=== PATIENT | female | born 1945 | race Caucasian/White ===

== ENCOUNTER 2018-11-01 13:52 | Emergency (ER) | payer MEDICARE, SELFPAY ==
[2018-11-01 14:01] VITALS: BP 200/81; PULSE 67; RESP 18; TEMP 36.4; O2SAT 99
--- NOTE | 2018-11-01 14:03 | DI.RAD.S_ITS ---
PROCEDURE: XR ELBOW LT MIN 3V INDICATIONS: glf, lt elbow pain/swelling TECHNIQUE: 3 views of the elbow were acquired. COMPARISON: None. FINDINGS: Bones: Mildly displaced proximal ulnar/olecranon fracture, best seen on the lateral view Overlying soft tissue swelling. IMPRESSION: Proximal ulnar/olecranon fracture Dictated by: Pawan Anthony M.D. on 11/01/2018 at 14:26 Approved by: Pawan Anthony M.D. on 11/01/2018 at 14:27
--- NOTE | 2018-11-01 14:49 | ED.UPPEXIN ---
HPI - Extremity Injury (Upper) General Chief Complaint: Extremity Injury, Upper Stated Complaint: LT ARM/ELBOW FELL Time Seen by Provider: 11/01/18 14:16 Source: patient Mode of arrival: ambulatory Limitations: no limitations History of Present Illness HPI narrative: This is a 73-year-old female comes to the emergency department with complaint of left elbow pain. Patient states she was getting in her car. She went to step on the snow because she felt it would be more stable than all the ice and there was ice underneath that she slipped fell onto her back and left elbow. Patient states her back is a little sore but no major injuries there. Patient states she has large area of bruising and swelling and it is painful to move the elbow. She denies any numbness denies any tingling. She is able to move her fingers and squeeze without issue. Patient denies any injury, no neck pain, no shortness of breath or chest pain or pressure. She takes metoprolol and aspirin daily. She has a history of eye surgery was also told part of the issues with stroke that she is supposed to go see specialty physician for this. Patient also her tonsils as well as 2 partial mastectomies. Patient defers any pain medication at this time. Related Data Previous Rx's Medication Instructions Recorded metoprolol succinate ER 50 mg 50 mg PO QDAY #90 ter 01/22/18 tablet,extended release 24 hr hydrocodone-acetaminophen [[place]] 1 tab PO Q6H PRN #5 tab 11/01/18 Allergies Allergy/AdvReac Type Severity Reaction Status Date / Time lisinopril [LISINOPRIL] Allergy Unknown GI issues Unverified 12/31/17 12:18 Penicillins [PENICILLINS] Allergy Unknown Unverified 12/31/17 12:18 SULFA Allergy Mild Uncoded 12/31/17 12:18 Review of Systems Review of Systems ROS Unobtainable: All systems reviewed & are unremarkable except as noted in HPI and below Constitutional Denies headache(s) and Denies weakness ENT Ears, Nose, Mouth, and Throat: Denies headache(s) and Denies neck pain Cardiovascular Denies chest pain, Denies syncope (loc) and Denies dyspnea Respiratory Denies cough and Denies dyspnea Musculoskeletal Reports back pain (mild, none in the mild/backbone), Reports deformity, Reports arthralgias, Reports joint swelling, Reports limited range of motion, Denies neck pain, Denies numbness and Denies tingling Integumentary/Breasts Reports unusual bruising and Denies wounds Neurologic Denies syncope (loc), Denies headache(s), Denies numbness, Denies sensory deficit, Denies tingling, Denies paresthesias and Denies weakness [facility] Surgical History History of cataract removal with insertion of prosthetic lens History of tonsillectomy Status post appendectomy Status post breast lumpectomy Status post tubal ligation Family History Mother Age: 92 Heart disease Family History Mother Age: 92 Heart disease Social History substance use type: marijuana Exam Narrative Exam Narrative: GEN: well nourished, well appearing female, alert and oriented x 3, patient appears to be in mild distress. HEENT: Atraumatic, pupils are equal round reactive to light, extraocular movements are intact, nares are clear. HEART: Regular rate and rhythm without murmur, clicks, rubs. Pulses are equal in upper and lower extremities LUNGS:Lungs clear to auscultation, no wheezes, rales, crackles, chest moves symmetrically ABD:bowel sounds normal, soft, non-tender, no guarding, rebound, rigidity, no masses noted, no hepatosplenomegaly BACK: No cervical, thoracic or lumbar vertebral point tenderness. Patient has normal range of motion. Patient's gait is normal. MSCL: Patient has tenderness as well as bruising and swelling over the left elbow. Patient does not any clear deformity but she does have tenderness. Patient does not wish to fully straighten the elbow. 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 She has sensation in both upper extremities. NEURO:CN 2-12 intact, sensation normal Initial Vital Signs Initial Vital Signs: Vital Signs Temperature 97.6 F 11/01/18 14:01 Pulse Rate 67 11/01/18 14:01 Respiratory Rate 18 11/01/18 14:01 Blood Pressure 200/81 H 11/01/18 14:01 Pulse Oximetry 99 11/01/18 14:01 Scores GCS [place] coma scale eye opening: Spontaneous [place] coma scale verbal response: Orientated Eliezer coma scale motor response: Obey commands [place] coma scale total score: 15 Course Orders Ordered: ED Orders 11/01/18 14:03 XR elbow LT min 3V Stat Vital Signs - 8 hr 11/01/18 14:01 Temperature 97.6 F Pulse Rate 67 Respiratory Rate 18 Blood Pressure 200/81 H Pulse Oximetry 99 [facility] - Extremity Injury (Upper) Imaging Data elbow xray: Radiologist's impression: [address] [address] XRay Report Signed Patient: Kami Comer LMR#: [id number] : 4Acct:[id number] Age/Sex: 73 / FDate of Service: 11/01/18 Loc: ED Accession Number: [id number] Procedure: XR elbow LT min 3V Ordering Provider: Sierra Ozuna D.O. PROCEDURE: XR ELBOW LT MIN 3V INDICATIONS: glf, lt elbow pain/swelling TECHNIQUE: 3 views of the elbow were acquired. COMPARISON: None. FINDINGS: Bones: Mildly displaced proximal ulnar/olecranon fracture, best seen on the lateral view Overlying soft tissue swelling. IMPRESSION: Proximal ulnar/olecranon fracture Dictated by: Pawan Anthony M.D. on 11/01/2018 at 14:26 Approved by: Pawan Anthony M.D. on 11/01/2018 at 14:27 [facility] Narrative Medical decision making narrative: Patient's films were reviewed with Dr. Armstrong here in the department. Plan for conservative and non operative management at this time. Patient is to be placed in partial extension with posterior long-arm splint. Plan for follow-up with the office. Patient defers any medication here in the department. Discussed will do a small script for breakthrough pain and she plans to [id number] medications for pain control. Nursing placed splint, on recheck patient is nvi. shoulder immobilizer given. And discussion on s/s to watch for, reasons to return. Discharge Plan Departure Patient Disposition: Home Clinical Impression: Closed olecranon fracture Qualifiers: Encounter type: initial encounter Laterality: left Qualified Code(s): S52.022A - Displaced fracture of olecranon process without intraarticular extension of left ulna, initial encounter for closed fracture Discharge Date/Time: 11/01/18 16:06 Interventions: ED Discharge Assessment Last Done: 11/01/18 16:06 Instructions: DI for Elbow Fracture Activity Restrictions/Additional Instructions: Follow-up with Orthopedic surgery this following week, call tomorrow morning for an appointment. You may take Tylenol up to a 1000 mg every 8 hr as needed for pain. Continue home medications as prescribed. You may take prescribed narcotic pain medication as needed, this medication can make you sleepy so do not drive, perform hazards activities or make any major decisions while taking it. Splint Care: Keep splint clean and dry. Elevated affected body part to decrease swelling. OK to use ice pack on the affected body part. Use for 15-20 minutes each time, for 5-6x per day. If you develop worsening pain, numbness, tingling, discoloration of the affected body part, loosen the splint by loosening the AARON wrap, and either see your doctor for an urgent re-assessment, or return to the Emergency Department. Return to the Emergency Department for any new or worsening symptoms. Prescriptions: New hydrocodone-acetaminophen [[place]] 5-325 mg tablet 1 tab PO Q6H PRN (Reason: pain) Qty: 5 RF: 0 No Action metoprolol succinate 50 mg tablet extended release 24 hr 50 mg PO QDAY Qty: 90 RF: 3 Referrals: Opal Aparicio MD [Physician] -
== END 2018-11-01 16:06 | disposition home or self-care (01) ==
PROVIDERS: Emergency Provider Emergency Medicine
DX: S52.022A Displaced fracture of olecranon process without intraarticular extension of left ulna, initial encounter for closed fracture (principal); W01.0XXA Fall on same level from slipping, tripping and stumbling without subsequent striking against object, initial encounter
CPT/HCPCS: 29105; 73080; 99282; 99283

== ENCOUNTER → 2020-03-28 10:47 | Outpatient (CLI) | payer MEDICARE, SELFPAY ==
[2020-03-28 11:15] LABS: Add Manual Diff / Slide Review NO; Basophils Absolute Auto 100 /uL (0-100); Basophils Percent Auto 1.2 % (0-2); Eosinophils Absolute Auto 400 /uL (0-450); Eosinophils Percent Auto 5.3 % (2-4); Hematocrit 38.9 % (36-46); Hemoglobin 12.6 g/dL (12.0-16.0); Lymphocytes Absolute Auto 3100 /uL (1100-4500); Lymphocytes Percent Auto 36.4 % (25-40); Mean Corpuscular HGB Conc 32.3 % (30-36); Mean Corpuscular Hemoglobin 28.1 PG (26-34); Monocytes Absolute Auto 400 /uL (0-900); Monocytes Percent Auto 5.3 % (3-14); Neutrophils Absolute Auto 4400 /uL (1500-7000); Neutrophils Percent Auto 51.8 % (50-75); Platelet Count 305 X10^3/uL (150-400); Red Blood Cell Count 4.48 X10^6/uL (4.0-5.2); Red Cell Distribution Width 15.3 % (11.6-14.8); White Blood Cell Count 8.4 X10^3/uL (4.5-11.0)
[2020-03-28 11:33] LABS: Alanine Aminotransferase 39 IU/L (<35); Albumin 4.1 g/dL (3.5-5.0); Albumin Globulin Ratio 1.2 (1.0-2.8); Alkaline Phosphatase 180 U/L (38-126); Aspartate Aminotransferase 47 IU/L (14-36); BUN Creatinine Ratio 21.7 (6-22); Bilirubin Total 0.4 mg/dL (0.2-1.3); Blood Urea Nitrogen 18 mg/dL (7-17); Calcium 9.9 mg/dL (8.4-10.2); Carbon Dioxide 32 mmol/L (22-32); Chloride 104 mmol/L (98-107); Estimated Glomerular Filt Rate > 60.0 mL/min (>60); Globulin 3.5 g/dL (1.7-4.1); Glucose 93 mg/dL (80-110); HEMOLYSIS < 15 (0-50); Sodium 140 mmol/L (137-145); Total Protein 7.6 g/dL (6.3-8.2)
[2020-03-28 12:04] LABS: TSH w/ Reflex to FT4 3.45 uIU/mL (0.47-4.68)
== END ==
PROVIDERS: PCP Internal Medicine; Referring Provider Internal Medicine; Visit Provider Internal Medicine
DX: I10 Essential (primary) hypertension (principal); Q23.8 Other congenital malformations of aortic and mitral valves
CPT/HCPCS: 36415; 80053; 84443; 85025

== ENCOUNTER 2022-09-15 19:24 | Emergency (ER) | payer MEDICARE, SELFPAY ==
[2022-09-15 19:28] VITALS: BP 214/103; PULSE 95; RESP 16; TEMP 36.4; O2SAT 96; BMI 20.9
--- NOTE | 2022-09-15 19:40 | DI.CT.S_ITS ---
PROCEDURE: CT CERVICAL SPINE WO CON INDICATIONS: fall, hit head TECHNIQUE: Noncontrast 3 mm thick sections acquired from the skull base to the T4 level. Sagittal and coronal reformats were then constructed. For radiation dose reduction, the following was used: automated exposure control, adjustment of mA and/or kV according to patient size. COMPARISON: None. FINDINGS: Image quality: Excellent. Bones: No fractures or dislocations. Visualized superior ribs are intact. Cervical spondylosis is centered C5-C6 and C6-C7. There is disc height loss and bilateral uncovertebral joint osteophytes at these levels. There is severe bony foraminal narrowing on the right C5-C6. Soft tissues: Prevertebral soft tissues are normal in thickness. No paravertebral hematomas. No apical pneumothoraces. IMPRESSION: 1. No evidence acute cervical fracture or dislocation. 2. Cervical spondylitic change. Findings include severe foraminal narrowing on the right at C5-C6. Dictated by: Sahil Lowe M.D. on 09/15/2022 at 19:57 Approved by: Sahil Lowe M.D. on 09/15/2022 at 19:59
--- NOTE | 2022-09-15 19:40 | DI.CT.S_ITS ---
PROCEDURE: CT HEAD/BRAIN WO CON INDICATIONS: fall, hit head, on coumadin TECHNIQUE: Noncontrast 4.5 mm thick angled axial sections acquired from the foramen magnum to the vertex, with coronal and sagittal reformats. For radiation dose reduction, the following was used: automated exposure control, adjustment of mA and/or kV according to patient size. COMPARISON: None. FINDINGS: Image quality: Excellent. CSF spaces: Basal cisterns are patent. No extra-axial fluid collections. The ventricles are symmetric in size and shape. Brain: No intracranial bleeds or masses. There is cerebral volume loss for age, with resultant ventricular and sulcal prominence. There are periventricular and deep white matter chronic small vessel ischemic changes. There is intracranial internal carotid artery atherosclerosis. Skull and face: Calvarium and visualized facial bones appear intact, without suspicious lesions. Sinuses: Visualized sinuses and mastoids are clear. IMPRESSION: No evidence acute intracranial abnormality Dictated by: Sahil Loew M.D. on 09/15/2022 at 19:59 Approved by: Sahil Lowe M.D. on 09/15/2022 at 20:00
--- NOTE | 2022-09-15 19:41 | ED.FALL ---
HPI - Fall General Chief Complaint: Fall Stated Complaint: fell/head/right arm/leg injury Time Seen by Provider: 09/15/22 19:33 History of Present Illness HPI Narrative: 77-year-old woman with history of chronic atrial fibrillation anticoagulated on warfarin, hypertension stumbled over a step suffering a mechanical fall landing on her knees wrists with the brunt of the impact on the right side than hitting her right shoulder and the right side of her head with a small laceration to the right side of her forehead. She is brought in by her grandson who corroborates the story. She notes that she is been otherwise doing well with no chest pain, palpitations, fevers, cough, abdominal pain, vomiting, dizziness, near syncopal episodes, headaches, weakness or numbness. Related Data Home Medications Medication Instructions Recorded Confirmed aspirin 81 mg tablet,delayed 81 mg PO DAILY 02/16/19 11/06/20 release (Fam Low Dose Aspirin) B-complex with vitamin C 1 tab PO DAILY 07/28/19 11/06/20 ascorbate calcium (vitamin C) 500 500 mg PO DAILY 07/28/19 11/06/20 mg tablet cholecalciferol (vitamin D3) 25 25 mcg PO DAILY 03/28/20 11/06/20 mcg (1,000 unit) capsule Previous Rx's Medication Instructions Recorded felodipine 10 mg tablet,extended 10 mg PO DAILY #90 tabs 11/08/21 release 24 hr metoprolol succinate 100 mg 100 mg PO DAILY #90 tabs 11/08/21 tablet,extended release 24 hr oxycodone-acetaminophen 5 mg-325 1 tab PO Q6H PRN pain #14 tabs 09/15/22 mg tablet polyethylene glycol 3350 17 17 g PO DAILY #238 grams 09/15/22 gram/dose oral powder (Miralax) Allergies Allergy/AdvReac Type Severity Reaction Status Date / Time Penicillins [PENICILLINS] Allergy Intermediate Rash and Verified 11/06/20 10:17 other stuff. I was in high school. Influenza Virus Vaccines AdvReac Intermediate (High Verified 11/06/20 10:17 Dose) A bunch of little bump around the site lisinopril [LISINOPRIL] AdvReac Intermediate GI issues Verified 11/06/20 10:17 Soyfwcs-VAJ-SxD Reductase AdvReac Intermediate Exhaustion Verified 11/06/20 10:17 Inhibitor and flu [Frxctew-Byi-Kgo Reductase like Inhibitor] symptoms Cats Allergy Intermediate Normal Uncoded 11/06/20 10:17 Allergy symptoms. SULFA Allergy Mild Patient Uncoded 11/06/20 10:17 can't remember - I was a kid. Review of Systems Review of Systems Narrative: Remainder of complete review of systems is otherwise unremarkable except for that included in the HPI. Patient History Medical History Abnormality of mitral valve annulus Essential hypertension (06/25/16) History of stroke PFO (patent foramen ovale) Transaminitis White matter disease Surgical History History of cataract removal with insertion of prosthetic lens History of tonsillectomy Status post appendectomy Status post breast lumpectomy Status post tubal ligation Family History Mother Age: 96 Heart disease Social History Smoking Status: Former smoker (Quit in 1986) Tobacco: How many years used: 12 second hand exposure: No alcohol intake: current (a rony when I have [place] food occasionally.) substance use type: marijuana (I smoke it once a week.) Smoking Status: Former smoker (Quit in 1986) Exam Initial Vital Signs Initial Vital Signs: Vital Signs Temperature 97.5 F L 09/15/22 19:28 Pulse Rate 95 H 09/15/22 19:28 Respiratory Rate 16 09/15/22 19:28 Blood Pressure 214/103 H 09/15/22 19:28 Pulse Oximetry 96 09/15/22 19:28 Oxygen Delivery Method 09/15/22 19:28 General: Builder frail but otherwise healthy appearing and in no acute distress. Able to give a complete and coherent history. HEENT: Moist mucous membranes, normal sclera with reactive pupils, 2 cm laceration with minor hematoma to the right side of her forehead with bleeding controlled not particularly tender. No other head trauma. Neck: No specific point tenderness, supple Respiratory: Lungs are clear to auscultation, no wheezing no rales no rhonchi. Full and symmetrical air movement Cardiac: Regular rate and rhythm, 4/6 systolic murmur Abdomen: Soft, nontender, good bowel tones, no flank pain, no bruising or contusions Spine: No tenderness along thoracic or lumbar spine. No tenderness with pelvic ring manipulation. Skin: Warm and dry, minor abrasions to both knees. Neurologic: Grossly neurologically intact with no obvious asymmetries or abnormalities Extremities: Minor abrasions to both knees with normal unhindered range of motion, no hematomas and no bony tenderness, minor tenderness to her wrist with full range of motion and no bony tenderness or hematoma. Tender along the olecranon on the right side, can not fully extend her elbow no neurologic complaints distally. No shoulder pain or tenderness on the right side. The left upper extremity was not affected. Psych: Cooperative, appropriate insight and affect Procedures Laceration Repair Right side of forehead: Time of procedure: 21:26 Site: face Side (If applicable): right Size (cm): 2 Description: linear Depth: simple, single layer Pre-repair: wound explored and deep structures intact Skin layer closed with: dermabond Orthopedic Splinting/Casting Right elbow fracture: Time of procedure: 21:26 Side: right Upper Extremity Injury Location: elbow Upper Extremity Immobilizer: sling/shoulder immobilizer Post splinting neuro exam: intact Post splinting vascular exam: intact Placed by: Nursing Course Orders Ordered: ED Orders 09/15/22 19:40 CT cervical spine wo con Stat CT head/brain wo con Stat 09/15/22 20:15 Complete Blood Count AUTO DIFF Stat Comprehensive Metabolic Panel Stat Prothrombin Time INR Stat 09/15/22 20:29 XR elbow RT min 3V Stat 09/15/22 20:31 XR knee LT 3V Stat Discontinued Medications Oxycodone/Acetaminophen (Oxycodone/Apap 5/325 Prepack) 1 bottle MISC SEEINSTR ONE Stop: 09/15/22 19:40 Last Admin: 09/15/22 20:08 Dose: 1 bottle Documented By: SB Vital Signs Vital signs: Vital Signs - 8 hr 09/15/22 19:28 Temperature 97.5 F L Pulse Rate 95 H Respiratory Rate 16 Blood Pressure 214/103 H Pulse Oximetry 96 Oxygen Delivery Method Room Air MDM - Fall Lab Data Result diagrams: 09/15/22 20:15 09/15/22 20:15 Labs: Lab Results 09/15/22 09/15/22 09/15/22 Range/Units 20:15 20:15 20:15 WBC 8.1 (4.5-11.0) X10^3/uL RBC 4.50 (4.0-5.2) X10^6/uL Hgb 13.7 (12.0-16.0) g/dL Hct 41.1 (36-46) % MCV 91.4 (80-100) fL MCH 30.4 (26-34) PG MCHC 33.2 (30-36) % RDW 14.5 (11.6-14.8) % Plt Count 286 (150-400) X10^3/uL Neut % (Auto) 54.6 (50-75) % Lymph % (Auto) 33.2 (25-40) % Wagoner % (Auto) 6.9 (3-14) % Eos % (Auto) 4.1 H (2-4) % Baso % (Auto) 1.2 (0-2) % Neut # (Auto) 4400 (4048-0481) /uL Lymph # (Auto) 2700 (0925-4492) /uL Wagoner # (Auto) 600 (0-900) /uL Eos # (Auto) 300 (0-450) /uL Baso # (Auto) 100 (0-100) /uL PT 21.7 H (10.1-12.7) SECONDS INR 1.9 H (0.9-1.3) Sodium 142 (137-145) mmol/L Potassium 3.6 (3.4-5.1) mmol/L Chloride 107 (98-107) mmol/L Carbon Dioxide 27 (22-32) mmol/L BUN 30 H (7-17) mg/dL Creatinine 1.15 H (0.52-1.04) mg/dL Estimated GFR 49 L (>60) mL/min BUN/Creatinine Ratio 26.1 H (6-22) Glucose 107 (80-110) mg/dL Calcium 9.0 (8.4-10.2) mg/dL Total Bilirubin 0.3 (0.2-1.3) mg/dL AST 22 (14-36) IU/L ALT 14 (<35) IU/L Alkaline Phosphatase 137 H (38-126) U/L Total Protein 7.9 (6.3-8.2) g/dL Albumin 3.7 (3.5-5.0) g/dL Globulin 4.2 H (1.7-4.1) g/dL Albumin/Globulin Ratio 0.9 L (1.0-2.8) Imaging Data CT scan - head: Radiologist's Impression: FINDINGS:? Image quality:? Excellent.? ? CSF spaces:? Basal cisterns are patent.? No extra-axial fluid collections.? The ventricles are symmetric in size and shape.? ? Brain:? No intracranial bleeds or masses.? There is cerebral volume loss for age, with resultant ventricular and sulcal prominence.? There are periventricular and deep white matter chronic small vessel ischemic changes.? There is intracranial internal carotid artery atherosclerosis.? ? Skull and face:? Calvarium and visualized facial bones appear intact, without suspicious lesions.? ? Sinuses:? Visualized sinuses and mastoids are clear.? ? IMPRESSION:? No evidence acute intracranial abnormality ? ? ? Dictated by: Sahil Lowe M.D. on 09/15/2022 at 19:59 ? ? CT - cervical spine: Radiologist's Impression: FINDINGS:? Image quality:? Excellent.? ? CSF spaces:? Basal cisterns are patent.? No extra-axial fluid collections.? The ventricles are symmetric in size and shape.? ? Brain:? No intracranial bleeds or masses.? There is cerebral volume loss for age, with resultant ventricular and sulcal prominence.? There are periventricular and deep white matter chronic small vessel ischemic changes.? There is intracranial internal carotid artery atherosclerosis.? ? Skull and face:? Calvarium and visualized facial bones appear intact, without suspicious lesions.? ? Sinuses:? Visualized sinuses and mastoids are clear.? ? IMPRESSION:? No evidence acute intracranial abnormality ? ? ? Dictated by: Sahil Lowe M.D. on 09/15/2022 at 19:59 ? ? XT knee: Radiologist's Impression: FINDINGS:? ? Bones:? Nondisplaced lucency through the inferior/mid patella. ? Soft tissues:? Minimal joint effusion.? No suspicious soft tissue calcifications.? ? ? IMPRESSION:? Nondisplaced lucency through the mid patella as above.? While it does not appear as prominent as a fracture lucency, it does appear more pronounced than typically seen as a nutrient groove or osseous vascularity.? Recommend correlation point tenderness and short interval imaging follow-up. ? ? Dictated by: Josefina Ramos M.D. on 09/15/2022 at 20:49 ? ? elbow xray: Radiologist's Impression: FINDINGS:? ? Bones:? Slight offset appearance the proximal radial head. ? Soft tissues:? Effusion evaluation is limited secondary to patient positioning..? No suspicious soft tissue calcifications.? ? ? IMPRESSION:? Offset appearance of the proximal radial head most consistent with fracture. ? ? Dictated by: Josefina Ramos M.D. on 09/15/2022 at 20:51 ? ? MDM Narrative Medical decision making narrative: 77-year-old woman anticoagulated for her chronic atrial fibrillation suffers mechanical fall landing on her knees elbow shoulder and head. Patient and her grandson are interviewed. No evidence of medical reason for fall, orthopedic complications include possibility patellar fractures knee fractures knee effusions, hip fractures, wrist and elbow fractures, acute neck injury intracranial hemorrhage and complications of laceration to the side of her forehead along with bleeding complications because of her anticoagulation. CT scans of the head and neck are unremarkable. X-rays of the elbow suggest a proximal radial head fracture that will be treated with a sling and referral to Orthopedics. Films are independently reviewed by me. There is no ulnar nerve deficit appreciated on exam. Appropriate pain control will be needed. Because of her Coumadin she can not use nonsteroidals will give her brief prescription for Percocet along with instructions on avoiding constipation X-ray of the knee suggests possible patellar fracture however clinical exam does not show that much tenderness. This is reviewed with patient and her grandson and will ask her to review this with the orthopedic surgeon when she follows up with the elbow injury Partial-thickness laceration to the forehead repaired with skin glue and augmented with Steri-Strips. Instructions on wound care and when to expect the glue and Steri-Strips to begin to peel off. No evidence of excessive bleeding or any additional injuries at this time. She will be safe for discharge home Discharge Plan Departure Patient Disposition: Home Clinical Impression: Anticoagulated, Elevated blood pressure reading Forehead laceration Qualifiers: Encounter type: initial encounter Qualified Code(s): S01.81XA - Laceration without foreign body of other part of head, initial encounter Fall Qualifiers: Encounter type: initial encounter Qualified Code(s): W19.XXXA - Unspecified fall, initial encounter Contusion of knee, left Qualifiers: Encounter type: initial encounter Qualified Code(s): S80.02XA - Contusion of left knee, initial encounter Fracture of radial head, right, closed Qualifiers: Encounter type: initial encounter Fracture alignment: nondisplaced Qualified Code(s): S52.124A - Nondisplaced fracture of head of right radius, initial encounter for closed fracture Activity Restrictions/Additional Instructions: Thank you for coming in today. I am sorry that you stumbled on the curb. Fortunately there is no bleeding in your brain and no spine abnormalities. It looks like you do have a small fracture of your right elbow. This may well be treated only with a sling. You have been given a sling in the emergency department but will need orthopedic follow-up. Please contact [facility] at [phone] for definitive treatment of your elbow fracture The x-ray of your left kneecap suggest there may be a subtle fracture. Please discuss this with the orthopedic surgeon when you follow-up regarding your elbow. There is no specific treatment other than pain control for that. Regarding the laceration on your forehead, I used skin glue and Steri-Strips. Both of these should begin to peel off in 5-6 days which will be absolutely appropriate. It is okay to take a shower and simply pat that area dry rather than rubbing at it. Please do not allow the area to soak in water for any extended period of time. Do expect more pain everywhere tomorrow, after a fall such as this pain typically increases for the 1st 48 hours. Being mobile will help. With Coumadin, you do not want to mix nonsteroidals such as ibuprofen. For moderate pain Tylenol is appropriate and for severe pain Percocet can be helpful. Percocet has Tylenol plus oxycodone. It can be constipating. I do recommend a capful of MiraLax every day that you take oxycodone. If you find that you are getting worse or develop any new symptoms, please feel free to return to the emergency department for further evaluation. Prescriptions: New oxycodone-acetaminophen 5-325 mg tablet 1 tab PO Q6H PRN (Reason: pain) Qty: 14 0RF polyethylene glycol 3350 [Miralax] 17 gram/dose powder 17 g PO DAILY Qty: 238 0RF No Action felodipine 10 mg tablet extended release 24 hr 10 mg PO DAILY Qty: 90 0RF Rx Instructions: PT WILL NEED TO BE SEEN BEFORE NEXT RENEWAL 11/08/21 metoprolol succinate 100 mg tablet extended release 24 hr 100 mg PO DAILY Qty: 90 0RF Rx Instructions: PT WILL NEED TO BE SEEN BEFORE NEXT RENEWAL 11/08/21 aspirin [Fam Low Dose Aspirin] 81 mg tablet,delayed release (DR/EC) 81 mg PO DAILY cholecalciferol (vitamin D3) 25 mcg (1,000 unit) capsule 25 mcg PO DAILY B-complex with vitamin C Tablet 1 tab PO DAILY ascorbate calcium (vitamin C) 500 mg tablet 500 mg PO DAILY Referrals: Danielito Leija MD [Primary Care Provider] -
--- NOTE | 2022-09-15 19:45 | PC.NURSE ---
In CT at this time
[2022-09-15] MEDS: OXYCODONE/APAP 5/325 PREPACK 1 BOTTLE MISC (20:08)
--- NOTE | 2022-09-15 20:29 | DI.RAD.S_ITS ---
PROCEDURE: XR ELBOW RT MIN 3V INDICATIONS: fall, unable to fully extend TECHNIQUE: 3 views of the elbow were acquired. COMPARISON: None. FINDINGS: Bones: Slight offset appearance the proximal radial head. Soft tissues: Effusion evaluation is limited secondary to patient positioning.. No suspicious soft tissue calcifications. IMPRESSION: Offset appearance of the proximal radial head most consistent with fracture. Dictated by: Josefina Ramos M.D. on 09/15/2022 at 20:51 Approved by: Josefina Ramos M.D. on 09/15/2022 at 20:52
--- NOTE | 2022-09-15 20:31 | DI.RAD.S_ITS ---
PROCEDURE: XR KNEE LT 3V INDICATIONS: fall TECHNIQUE: 3 views of the knee were acquired. COMPARISON: None. FINDINGS: Bones: Nondisplaced lucency through the inferior/mid patella. Soft tissues: Minimal joint effusion. No suspicious soft tissue calcifications. IMPRESSION: Nondisplaced lucency through the mid patella as above. While it does not appear as prominent as a fracture lucency, it does appear more pronounced than typically seen as a nutrient groove or osseous vascularity. Recommend correlation point tenderness and short interval imaging follow-up. Dictated by: Josefina Ramos M.D. on 09/15/2022 at 20:49 Approved by: Josefina Ramos M.D. on 09/15/2022 at 20:51
--- NOTE | 2022-09-15 20:32 | PC.NURSE ---
Addendum entered by Mary Ann Cadena R.N. 09/15/22 20:33: to XR not CT Original Note: to CT via stretcher
[2022-09-15 20:34] LABS: Add Manual Diff / Slide Review NO; Basophils Absolute Auto 100 /uL (0-100); Basophils Percent Auto 1.2 % (0-2); Eosinophils Absolute Auto 300 /uL (0-450); Eosinophils Percent Auto 4.1 % (2-4); Hematocrit 41.1 % (36-46); Hemoglobin 13.7 g/dL (12.0-16.0); Lymphocytes Absolute Auto 2700 /uL (1100-4500); Lymphocytes Percent Auto 33.2 % (25-40); Mean Corpuscular HGB Conc 33.2 % (30-36); Mean Corpuscular Hemoglobin 30.4 PG (26-34); Mean Corpuscular Volume 91.4 fL (80-100); Monocytes Absolute Auto 600 /uL (0-900); Monocytes Percent Auto 6.9 % (3-14); Neutrophils Absolute Auto 4400 /uL (1500-7000); Neutrophils Percent Auto 54.6 % (50-75); Platelet Count 286 X10^3/uL (150-400); Red Cell Distribution Width 14.5 % (11.6-14.8); White Blood Cell Count 8.1 X10^3/uL (4.5-11.0)
[2022-09-15 20:41] LABS: INR 1.9 (0.9-1.3); Prothrombin Time 21.7 SECONDS (10.1-12.7)
[2022-09-15 20:43] LABS: Alanine Aminotransferase 14 IU/L (<35); Albumin 3.7 g/dL (3.5-5.0); Albumin Globulin Ratio 0.9 (1.0-2.8); Alkaline Phosphatase 137 U/L (38-126); Aspartate Aminotransferase 22 IU/L (14-36); BUN Creatinine Ratio 26.1 (6-22); Bilirubin Total 0.3 mg/dL (0.2-1.3); Blood Urea Nitrogen 30 mg/dL (7-17); Carbon Dioxide 27 mmol/L (22-32); Chloride 107 mmol/L (98-107); Estimated Glomerular Filt Rate 49 mL/min (>60); Globulin 4.2 g/dL (1.7-4.1); Glucose 107 mg/dL (80-110); HEMOLYSIS < 15 (0-50); Potassium 3.6 mmol/L (3.4-5.1); Sodium 142 mmol/L (137-145); Total Protein 7.9 g/dL (6.3-8.2)
--- NOTE | 2022-09-15 21:15 | PC.NURSE ---
Sling applied to the right arm - instructions given for use - understanding verbalized - tolerated well
== END 2022-09-15 21:51 | disposition home or self-care (01) ==
PROVIDERS: Emergency Provider Emergency Medicine; PCP Internal Medicine
DX: S01.81XA Laceration without foreign body of other part of head, initial encounter (principal); S80.02XA Contusion of left knee, initial encounter; S52.124A Nondisplaced fracture of head of right radius, initial encounter for closed fracture; I10 Essential (primary) hypertension; W18.30XA Fall on same level, unspecified, initial encounter; I48.91 Unspecified atrial fibrillation; Z79.01 Long term (current) use of anticoagulants; Z79.899 Other long term (current) drug therapy
CPT/HCPCS: 36415; 70450; 72125; 73080; 73562; 80053; 85025; 85610; 99283; 99284

== ENCOUNTER 2024-09-22 18:35 | Inpatient (IN) | payer MEDICARE, SELFPAY ==
[2024-09-22] VITALS (12 sets, daily range): BP systolic 147–190; BP diastolic 62–92; PULSE 87–112; RESP 16–22; TEMP 36.6–37.1; O2SAT 94–98; BMI 27.7; BMI 26.2
--- NOTE | 2024-09-22 18:46 | DI.CT.S_ITS ---
PROCEDURE: CT CERVICAL SPINE WO CON INDICATIONS: fall, hit head, dementia TECHNIQUE: Noncontrast 3 mm thick sections acquired from the skull base to the T4 level. Sagittal and coronal reformats were then constructed. For radiation dose reduction, the following was used: automated exposure control, adjustment of mA and/or kV according to patient size. COMPARISON: [facility], CT, CT CERVICAL SPINE WO CON, 09/15/2022, 19:47. FINDINGS: Image quality: Diagnostic Bones: No fractures or dislocations. Visualized superior ribs are intact. Soft tissues: Prevertebral soft tissues are normal in thickness. No paravertebral hematomas. No apical pneumothoraces. IMPRESSION: No displaced fracture or traumatic subluxation. Approved by: Ashlie Camarillo M.D.,Ph.D. on 09/22/2024 at 20:23
--- NOTE | 2024-09-22 18:46 | DI.RAD.S_ITS ---
PROCEDURE: XR HIP W PEL IF DONE LT 2V INDICATIONS: fall, hit head, dementia TECHNIQUE: 2 views of the hip were acquired. COMPARISON: None. FINDINGS: Bones: Acute, displaced intertrochanteric fracture of the left proximal femur. No suspicious bony lesions. The visualized pelvic ring appears intact. Soft tissues: No suspicious soft tissue calcifications or masses. IMPRESSION: Acute, displaced intertrochanteric proximal left femur fracture. Dictated by: Clyde Calderon M.D. on 09/22/2024 at 19:09 Approved by: Clyde Calderon M.D. on 09/22/2024 at 19:10
--- NOTE | 2024-09-22 18:46 | DI.CT.S_ITS ---
PROCEDURE: CT HEAD/BRAIN WO CON INDICATIONS: fall, hit head, dementia TECHNIQUE: Noncontrast 4.5 mm thick angled axial sections acquired from the foramen magnum to the vertex, with coronal and sagittal reformats. For radiation dose reduction, the following was used: automated exposure control, adjustment of mA and/or kV according to patient size. COMPARISON: [facility], CT, CT HEAD WITHOUT CONTRAST, 11/12/2023, 20:17. [facility], CT, CT HEAD/BRAIN WO CON, 09/15/2022, 19:47. FINDINGS: Image quality: Diagnostic. CSF spaces: Basal cisterns are patent. No extra-axial fluid collections. The ventricles are symmetric in size and shape. Brain: No intracranial bleeds or masses. There is moderate cerebral volume loss for age, with resultant ventricular and sulcal prominence. There are moderate periventricular and deep white matter chronic small vessel ischemic changes. Redemonstration of previously described encephalomalacia of the right frontal lobe with extension toward the parietal lobe. Findings are compatible with remote infarction. Additionally, there is also a new area of moderate encephalomalacia involving the posteromedial aspect of the left occipital lobe compatible with remote infarction. There is intracranial internal carotid artery atherosclerosis. Skull and face: Calvarium and visualized facial bones appear intact, without suspicious lesions. Sinuses: Visualized sinuses and mastoids are clear. IMPRESSION: No acute intracranial abnormality seen. New chronic appearing encephalomalacia involving the posterior, medial aspect of the left occipital lobe compatible with remote infarction. This was not visualized on most recent head CT dated November 12, 2023. Stable appearance of encephalomalacia of the right frontal lobe compatible with remote infarction. Age related senescent changes and sequela of chronic small vessel ischemic disease. If there is persistent or high clinical suspicion for acute cerebrovascular ischemia/stroke, more sensitive evaluation with brain MRI can be considered. Dictated by: Clyde Calderon M.D. on 09/22/2024 at 19:59 Approved by: Clyde Calderon M.D. on 09/22/2024 at 20:04
--- NOTE | 2024-09-22 18:48 | ED.FALL ---
HPI - Fall General Chief Complaint: Fall Stated Complaint: GLF / LEFT hip pain Time Seen by Provider: 09/22/24 18:41 Source: patient, EMS, RN notes reviewed and old records reviewed Mode of arrival: EMS Limitations: no limitations History of Present Illness HPI Narrative: 79-year-old female history of atrial fibrillation, hypertension on aspirin patient was dining area her dementia unit. She had a fall she states she fell backwards did hit her head on the side table. She has pain she states more in her right but actually has pain when she moves her left hip shortened and rotated with movement. EMS states fall was witnessed. Patient recalls falling and hitting her head. She denies any headache or neck pain, no chest pain or shortness of breath. No nausea or vomiting. No GI or urinary symptoms. She does have pain with movement of her extremity. She denies any numbness or tingling. Patient states she does take medicine for her heart. She states she takes an aspirin. Mother antinausea documents reported by EMS or patient. Patient states allergic to penicillin and sulfa. No tobacco, alcohol or recreational drugs. Related Data Home Medications Medication Instructions Recorded Confirmed aspirin 81 mg tablet,delayed 81 mg PO DAILY 02/16/19 11/06/20 release (Fam Low Dose Aspirin) B-complex with vitamin C 1 tab PO DAILY 07/28/19 11/06/20 ascorbate calcium (vitamin C) 500 500 mg PO DAILY 07/28/19 11/06/20 mg tablet cholecalciferol (vitamin D3) 25 25 mcg PO DAILY 03/28/20 11/06/20 mcg (1,000 unit) capsule Previous Rx's Medication Instructions Recorded felodipine 10 mg tablet,extended 10 mg PO DAILY #90 tabs 11/08/21 release 24 hr metoprolol succinate 100 mg 100 mg PO DAILY #90 tabs 11/08/21 tablet,extended release 24 hr oxycodone-acetaminophen 5 mg-325 1 tab PO Q6H PRN pain #14 tabs 09/15/22 mg tablet polyethylene glycol 3350 17 17 g PO DAILY #238 grams 09/15/22 gram/dose oral powder (Miralax) Allergies Allergy/AdvReac Type Severity Reaction Status Date / Time Penicillins [PENICILLINS] Allergy Intermediate Rash and Verified 09/22/24 18:57 other stuff. I was in high school. Influenza Virus Vaccines AdvReac Intermediate (High Verified 09/22/24 18:57 Dose) A bunch of little bump around the site lisinopril [LISINOPRIL] AdvReac Intermediate GI issues Verified 09/22/24 18:57 Luwfwrs-NAH-SeT Reductase AdvReac Intermediate Exhaustion Verified 09/22/24 18:57 Inhibitor and flu [Glkwwcd-Pgg-Rek Reductase like Inhibitor] symptoms Cats Allergy Intermediate Normal Uncoded 09/22/24 18:57 Allergy symptoms. SULFA Allergy Mild Patient Uncoded 09/22/24 18:57 can't remember - I was a kid. Review of Systems Review of Systems ROS Unobtainable: All systems reviewed & are unremarkable except as noted in HPI and below Patient History Medical History Transaminitis PFO (patent foramen ovale) Abnormality of mitral valve annulus White matter disease History of stroke Essential hypertension (06/25/16) Surgical History Status post breast lumpectomy History of cataract removal with insertion of prosthetic lens Status post tubal ligation History of tonsillectomy Status post appendectomy Family History Mother Age: 98 Heart disease Social History household members: other Smoking Status: Former smoker Tobacco: How many years used: 12 second hand exposure: No alcohol intake: current substance use type: marijuana (I smoke it once a week.) Smoking Status: Former smoker (Quit in 1986) Exam Narrative Exam Narrative: GEN: Patient appears in moderate distress. HEAD: Patient some bruising in the left cheek and temporal no raccoon/Whyte sign. NECK: Nontender, painless range of motion, trachea midline Negative Nexus criteria, no midline line tenderness, distracting injury, altered mental status, neuro deficit, recent EtOH. EYES: PERRLA, EOMI ENT: External inspection normal, trachea is midline, TM's are normal no hemotypanum, Nares are clear, no septal hematoma, no dental or oral injury, airway is normal and with normal occlusion, No bony tenderness RESP: Chest is nontender and has symmetric movement, no ecchymosis, breath sounds are normal no crackles, wheezes or rales CVS: Heart sounds are normal, no murmur noted, No JVD. ABG/GI: Nontender, soft, normal bowel sounds, no distention, no organomegaly, pelvic rock is negative NEURO: Oriented AOx3, neuro is grossly intact, sensation and motor is normal all 4 extremities moving, cranial nerves II through XII are intact, GCS is 15 PSYCH: Normal mood and affect SKIN: Intact, warm and dry, no crepitus and without decubitus BACK: No CVA tenderness, no vertebral tenderness, no step-off's, no crepitus EXT: Patient is shortened externally rotated has pain at the left hip. No pain of the knee calf or foot in the left. Patient has 2+ pulse. Nontender on the right leg and able to lift and move with the right leg without any pain. No tenderness with full range of motion bilateral upper extremities. Initial Vital Signs Initial Vital Signs: Vital Signs Pulse Rate 103 H 09/22/24 18:38 Pulse Oximetry 98 09/22/24 18:38 Course Orders Ordered: ED Orders 09/22/24 18:46 CT cervical spine wo con Stat CT head/brain wo con Stat XR hip w pel if done LT 2V Stat 09/22/24 18:53 CBC Auto Diff [Complete Blood Count AUTO DIFF] Stat CMP [Comprehensive Metabolic Panel] Stat 09/22/24 20:05 Type and Screen Stat 09/22/24 20:32 EKG-12 Lead Stat Discontinued Medications Metoprolol Succinate (Metoprolol Er 50 Mg Tablet) 50 mg PO NOW ONE Stop: 09/22/24 20:38 Last Admin: 09/22/24 20:52 Dose: 50 mg Documented By: ES Morphine Sulfate (Morphine 4 Mg/Ml Inj) 4 mg IV NOW ONE Stop: 09/22/24 18:47 Last Admin: 09/22/24 19:03 Dose: 4 mg Documented By: SB Morphine Sulfate (Morphine 4 Mg/Ml Inj) 4 mg IV NOW ONE Stop: 09/22/24 20:29 Last Admin: 09/22/24 20:36 Dose: 4 mg Documented By: ES Vital Signs Vital signs: Vital Signs - 8 hr 09/22/24 18:38 09/22/24 18:42 09/22/24 18:44 Temperature Pulse Rate 103 H Respiratory Rate Blood Pressure 190/85 H Pulse Oximetry 98 98 Oxygen Delivery Method 09/22/24 18:49 09/22/24 19:00 09/22/24 19:30 Temperature 98.8 F Pulse Rate 102 H 87 92 H Respiratory Rate 20 20 Blood Pressure 190/85 H Pulse Oximetry 98 97 96 Oxygen Delivery Method Room Air 09/22/24 20:00 09/22/24 20:30 09/22/24 20:35 Temperature Pulse Rate 98 H 95 H 106 H Respiratory Rate 22 20 19 Blood Pressure Pulse Oximetry 95 94 95 Oxygen Delivery Method Room Air 09/22/24 20:35 Temperature Pulse Rate Respiratory Rate Blood Pressure 159/92 H Pulse Oximetry Oxygen Delivery Method MDM - Fall Lab Data 09/22/24 18:53 09/22/24 18:53 Labs: Lab Results 09/22/24 09/22/24 Range/Units 18:53 20:05 WBC 13.6 H (4.5-11.0) X10^3/uL RBC 4.62 (4.0-5.2) X10^6/uL Hgb 13.7 (12.0-16.0) g/dL Hct 41.6 (36-46) % MCV 90.0 (80-100) fL MCH 29.7 (26-34) PG MCHC 32.9 (30-36) % RDW 14.7 (11.6-14.8) % Plt Count 373 (150-400) X10^3/uL Neut % (Auto) 68.6 (50-75) % Lymph % (Auto) 21.4 L (25-40) % [place] % (Auto) 6.8 (3-14) % Eos % (Auto) 2.4 (2-4) % Baso % (Auto) 0.8 (0-2) % Neut # (Auto) 9300 H (7951-9196) /uL Lymph # (Auto) 2900 (3370-6690) /uL [place] # (Auto) 900 (0-900) /uL Eos # (Auto) 300 (0-450) /uL Baso # (Auto) 100 (0-100) /uL Sodium 135 L (137-145) mmol/L Potassium 4.5 (3.4-5.1) mmol/L Chloride 107 (98-107) mmol/L Carbon Dioxide 20 L (22-32) mmol/L BUN 31 H (7-17) mg/dL Creatinine 1.53 H (0.52-1.04) mg/dL Estimated GFR 34 L (>60) mL/min BUN/Creatinine Ratio 20.3 (6-22) Glucose 160 H (80-110) mg/dL Calcium 9.7 (8.4-10.2) mg/dL Total Bilirubin 0.5 (0.2-1.3) mg/dL AST 28 (14-36) IU/L ALT 20 (<35) IU/L Alkaline Phosphatase 99 (38-126) U/L Total Protein 8.6 H (6.3-8.2) g/dL Albumin 3.9 (3.5-5.0) g/dL Globulin 4.7 H (1.7-4.1) g/dL Albumin/Globulin Ratio 0.8 L (1.0-2.8) Blood Type O Positive Antibody Screen Negative Imaging Data Extremity x-ray #1: Radiologist's Impression: Allergy/Adv: Penicillins, Influenza Virus Vaccines, lisinopril, Qvixxag-OUL-OsJ Reductase Inhibitor, [Cats], [SULFA] (More??) Close Hip X-Ray (Signed) Clyde Calderon - 09/22/24 Knee X-Ray (Signed) Josefina Ramos - 09/15/22 Elbow X-Ray (Signed) Josefina Ramos - 09/15/[address] (Signed) Sahil Lowe - 09/15/[address] (Signed) Sahil Lowe - 09/15/22 Elbow X-Ray (Signed) Pawan Anthony - 11/01/18 [place] [id number] XRay Report Signed Patient: Kami Comer MR#: [id number] : 1945 Acct:[id number] Age/Sex: 79 / F Date of Service: 09/22/24 Loc: ED Accession Number: [id number] Procedure: XR hip w pel if done LT 2V Ordering Provider: Sierra Ozuna D.O. PROCEDURE: XR HIP W PEL IF DONE LT 2V INDICATIONS: fall, hit head, dementia TECHNIQUE: 2 views of the hip were acquired. COMPARISON: None. FINDINGS: Bones: Acute, displaced intertrochanteric fracture of the left proximal femur. No suspicious bony lesions. The visualized pelvic ring appears intact. Soft tissues: No suspicious soft tissue calcifications or masses. IMPRESSION: Acute, displaced intertrochanteric proximal left femur fracture. Dictated by: Clyde Calderon M.D. on 09/22/2024 at 19:09 Approved by: Clyde Calderon M.D. on 09/22/2024 at 19:10 ECG Data Attestation: I personally reviewed and interpreted this ECG as follows: Interpretation: AFib rate of 96 QRS 84 QTC 442, no acute ST elevation depression noted. Nonspecific change. MDM Narrative Medical decision making narrative: 79-year-old female anticoagulated on aspirin had witnessed ground fall did hit her head main complaint left hip pain. Left hip x-ray, patient prelim review has obvious hip fracture. Labs white count of 13 hemoglobin of 13 platelets of 373. Sodium 135 CO2 of 20 BUN 31 creatinine 1.53 patient was elevated proximally 3 years ago at 1.15 glucose is 160. Head CT shows no acute change, but does show new chronic appearing encephalomalacia in the posterior medial aspect left occipital lobe compatible with CT cervical spine shows no acute change. Remote infarct not seen on last CT from November 12, 2023 stable encephalomalacia right frontal lobe compatible with remote infarct no acute bleed. Patient received morphine. Did have some improvement in pain. [address] Banks, imaging reviewed she defers CT imaging for the hip. [address] Cortes, accepts for Dr. Leija. Reviewed findings from today orthopedic plan for repair. He request EKG patient does have history of atrial fibrillation is on aspirin but not anticoagulated on Coumadin. EKG shows atrial fibrillation patient's heart rate has been in the 90s. She does normally take metoprolol in the evening according to her med reconciliation from her facility so gave a dose of metoprolol here in the department. Discharge Plan Departure Patient Disposition: Home Clinical Impression: Closed hip fracture, Fall, Abrasion of face
[2024-09-22] MEDS: MORPHINE 4 MG/ML INJ IV ×2 (19:03→20:36)
[2024-09-22 19:06] LABS: Add Manual Diff / Slide Review NO; Basophils Absolute Auto 100 /uL (0-100); Basophils Percent Auto 0.8 % (0-2); Eosinophils Absolute Auto 300 /uL (0-450); Eosinophils Percent Auto 2.4 % (2-4); Hematocrit 41.6 % (36-46); Hemoglobin 13.7 g/dL (12.0-16.0); Lymphocytes Absolute Auto 2900 /uL (1100-4500); Lymphocytes Percent Auto 21.4 % (25-40); Mean Corpuscular HGB Conc 32.9 % (30-36); Mean Corpuscular Hemoglobin 29.7 PG (26-34); Monocytes Absolute Auto 900 /uL (0-900); Monocytes Percent Auto 6.8 % (3-14); Neutrophils Absolute Auto 9300 /uL (1500-7000); Neutrophils Percent Auto 68.6 % (50-75); Platelet Count 373 X10^3/uL (150-400); Red Blood Cell Count 4.62 X10^6/uL (4.0-5.2); Red Cell Distribution Width 14.7 % (11.6-14.8); White Blood Cell Count 13.6 X10^3/uL (4.5-11.0)
[2024-09-22 19:12] LABS: Alanine Aminotransferase 20 IU/L (<35); Albumin 3.9 g/dL (3.5-5.0); Albumin Globulin Ratio 0.8 (1.0-2.8); Alkaline Phosphatase 99 U/L (38-126); Aspartate Aminotransferase 28 IU/L (14-36); BUN Creatinine Ratio 20.3 (6-22); Bilirubin Total 0.5 mg/dL (0.2-1.3); Blood Urea Nitrogen 31 mg/dL (7-17); Calcium 9.7 mg/dL (8.4-10.2); Carbon Dioxide 20 mmol/L (22-32); Chloride 107 mmol/L (98-107); Estimated Glomerular Filt Rate 34 mL/min (>60); Globulin 4.7 g/dL (1.7-4.1); Glucose 160 mg/dL (80-110); HEMOLYSIS 30 (0-50); Potassium 4.5 mmol/L (3.4-5.1); Sodium 135 mmol/L (137-145); Total Protein 8.6 g/dL (6.3-8.2)
--- NOTE | 2024-09-22 20:40 | EKG_ITS ---
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
[2024-09-22] MEDS: METOPROLOL ER 50 MG TABLET PO (20:52)
--- NOTE | 2024-09-22 22:16 | PC.NURSE ---
PATIENT ADMIT TO 206, PATIENT SLID OVER TO BED USING SLIDE BOARD. LEFT HIP FX, SCDS PLACED, PUREWICK CONNECTED TO SUCTION,BRIEF IN PLACE. PATIENT ORIENTED TO ROOM AND CALL LIGHT, ADMIT QUESTIONS ASKED , SOME NOT ANSWERED, SOME WITH CONFUSION. BED ALARM ON. FACILITY MEDICATIONS LIST FOR PATIENT INPUT TO Reissued.PATIENTS IDA RAMÍREZ
--- NOTE | 2024-09-22 22:32 | PC.NURSE ---
2229 Dr. Cortes called via answering service to get an order, awaiting call back.
[2024-09-22] MEDS: SODIUM CHLORIDE 0.9% FLUSH 10 ML IV (23:17)
[2024-09-22] MEDS: SODIUM CHLORIDE 0.9% 1,000 ML 75 ML IV (23:17)
[2024-09-22] MEDS: MORPHINE 2 MG/ML INJ IV (23:29)
[2024-09-23] MEDS: MORPHINE 2 MG/ML INJ IV ×5 (01:25→13:55)
--- NOTE | 2024-09-23 06:00 | CM.MNRNOTE ---
Not able to void when external female cath. was placed. Bladder scanned noted 712 cc in her bladder. Notified Dr. Cortes via answering service @ [phone]. Awaiting call back, will monitor & continue plan of care.
[2024-09-23 06:10] LABS: Add Manual Diff / Slide Review NO; Basophils Absolute Auto 100 /uL (0-100); Eosinophils Absolute Auto 100 /uL (0-450); Eosinophils Percent Auto 0.9 % (2-4); Hematocrit 37.9 % (36-46); Hemoglobin 12.7 g/dL (12.0-16.0); Lymphocytes Absolute Auto 2600 /uL (1100-4500); Lymphocytes Percent Auto 24.4 % (25-40); Mean Corpuscular HGB Conc 33.5 % (30-36); Mean Corpuscular Hemoglobin 30.1 PG (26-34); Mean Corpuscular Volume 89.7 fL (80-100); Monocytes Absolute Auto 900 /uL (0-900); Monocytes Percent Auto 8.6 % (3-14); Neutrophils Absolute Auto 7000 /uL (1500-7000); Neutrophils Percent Auto 65.1 % (50-75); Platelet Count 331 X10^3/uL (150-400); Red Blood Cell Count 4.22 X10^6/uL (4.0-5.2); Red Cell Distribution Width 14.6 % (11.6-14.8); White Blood Cell Count 10.8 X10^3/uL (4.5-11.0)
[2024-09-23 06:30] LABS: BUN Creatinine Ratio 20.6 (6-22); Blood Urea Nitrogen 26 mg/dL (7-17); Calcium 9.6 mg/dL (8.4-10.2); Carbon Dioxide 24 mmol/L (22-32); Chloride 106 mmol/L (98-107); Estimated Glomerular Filt Rate 43 mL/min (>60); Glucose 117 mg/dL (80-110); HEMOLYSIS < 15 (0-50); Potassium 4.5 mmol/L (3.4-5.1); Sodium 137 mmol/L (137-145)
--- NOTE | 2024-09-23 06:40 | PC.NURSE ---
PLaced a butts catheter noted 850 cc of sl. cloudy & strong odor. Urine sample sent to the lab. will report to day RN. to get an order when MD. see her this morning.
--- NOTE | 2024-09-23 06:57 | PC.NURSE ---
Checked patient & asked her if she needed some pain med. She stated I don't need anything @ this minute. Will monitor & report to day RN.
--- NOTE | 2024-09-23 07:47 | PM.HP.1 ---
History of Present Illness History of Present Illness Date Patient Seen: 09/23/24 Time Patient Seen: 08:42 Chief complaint: GLF / LEFT hip pain Narrative: From ED provider: 79-year-old female history of atrial fibrillation, hypertension on aspirin patient was dining area her dementia unit. She had a fall she states she fell backwards did hit her head on the side table. She has pain she states more in her right but actually has pain when she moves her left hip shortened and rotated with movement. EMS states fall was witnessed. Patient recalls falling and hitting her head. She denies any headache or neck pain, no chest pain or shortness of breath. No nausea or vomiting. No GI or urinary symptoms. She does have pain with movement of her extremity. She denies any numbness or tingling. Patient states she does take medicine for her heart. She states she takes an aspirin. Patient states allergic to penicillin and sulfa. No tobacco, alcohol or recreational drugs. S: She was reasonable pain control. She denies any chest pain, or dyspnea. She does have relatively significant cognitive impairment and is not able to provide much in terms of details. [facility] Medical History Transaminitis PFO (patent foramen ovale) Abnormality of mitral valve annulus White matter disease History of stroke Essential hypertension (06/25/16) Surgical History Status post breast lumpectomy History of cataract removal with insertion of prosthetic lens Status post tubal ligation History of tonsillectomy Status post appendectomy Family History Mother Age: 98 Heart disease Social History household members: other Smoking Status: Former smoker Tobacco: How many years used: 12 second hand exposure: No alcohol intake: current substance use type: marijuana (I smoke it once a week.) Meds Home Medications and Allergies Home Medications Medication Instructions Recorded Confirmed Type aspirin 81 mg tablet,delayed 81 mg PO DAILY 02/16/19 09/22/24 History release (Fam Low Dose Aspirin) cholecalciferol (vitamin D3) 25 25 mcg PO DAILY 03/28/20 09/22/24 History mcg (1,000 unit) capsule metoprolol succinate 100 mg 100 mg PO DAILY #90 tabs 11/08/21 09/22/24 Rx tablet,extended release 24 hr amlodipine 10 mg tablet 10 mg PO DAILY 09/22/24 09/22/24 History menthol 10 % topical cream 1 applic topical BID PRN R 09/22/24 09/22/24 History (Biofreeze (menthol)) SHOULDER PAIN sennosides 8.6 mg tablet (senna) 8.6 mg PO BEDTIME PRN Constipation 09/22/24 09/22/24 History Allergies Allergy/AdvReac Type Severity Reaction Status Date / Time Penicillins [PENICILLINS] Allergy Intermediate Rash and Verified 09/22/24 18:57 other stuff. I was in high school. Influenza Virus Vaccines AdvReac Intermediate (High Verified 09/22/24 18:57 Dose) A bunch of little bump around the site lisinopril [LISINOPRIL] AdvReac Intermediate GI issues Verified 09/22/24 18:57 Vnyslsf-HCQ-LsD Reductase AdvReac Intermediate Exhaustion Verified 09/22/24 18:57 Inhibitor and flu [Amaqowe-Sbb-Ups Reductase like Inhibitor] symptoms Cats Allergy Intermediate Normal Uncoded 09/22/24 18:57 Allergy symptoms. SULFA Allergy Mild Patient Uncoded 09/22/24 18:57 can't remember - I was a kid. Review of Systems Review of Systems Narrative: All else reviewed and otherwise unremarkable except as noted in the history and physical.8 Exam Vital Signs (past 8 hours): Oxygen Delivery Method Room Air Narrative Exam Narrative: NAD, alert and oriented to person, fluent speech, calm. Normocephalic skull, EOMI, anicteric sclera, symmetric pupils. Oropharynx unremarkable, no droop. Neck supple, midline trachea, no adenopathy. Lungs clear, normal rate and effort. Heart regular, no murmur gallop or rub. Abdomen is soft, non distended and non tender. Extremities are free of edema. Skin is free of rash or lesions. Joints are not swollen or deformed. Judgment appears to be normal. Objective ECG Impression: Atrial fibrillation Nonspecific ST and T wave abnormality Imaging Multiple studies:: Radiologist's impression: Brain CT: No acute intracranial abnormality seen. New chronic appearing encephalomalacia involving the posterior, medial aspect of the left occipital lobe compatible with remote infarction. This was not visualized on most recent head CT dated November 12, 2023. Stable appearance of encephalomalacia of the right frontal lobe compatible with remote infarction. Age related senescent changes and sequela of chronic small vessel ischemic disease. If there is persistent or high clinical suspicion for acute cerebrovascular ischemia/stroke, more sensitive evaluation with brain MRI can be considered. Cervical spine CT: No displaced fracture or traumatic subluxation. Hip x-ray: Acute, displaced intertrochanteric proximal left femur fracture. Labs 09/23/24 05:47 09/23/24 05:47 Labs: Laboratory Results - last 24 hr 09/22/24 09/22/24 09/23/24 18:53 20:05 05:47 WBC 13.6 H 10.8 RBC 4.62 4.22 Hgb 13.7 12.7 Hct 41.6 37.9 MCV 90.0 89.7 MCH 29.7 30.1 MCHC 32.9 33.5 RDW 14.7 14.6 Plt Count 373 331 Neut % (Auto) 68.6 65.1 Lymph % (Auto) 21.4 L 24.4 L [place] % (Auto) 6.8 8.6 Eos % (Auto) 2.4 0.9 L Baso % (Auto) 0.8 1.0 Neut # (Auto) 9300 H 7000 Lymph # (Auto) 2900 2600 [place] # (Auto) 900 900 Eos # (Auto) 300 100 Baso # (Auto) 100 100 Sodium 135 L 137 Potassium 4.5 4.5 Chloride 107 106 Carbon Dioxide 20 L 24 BUN 31 H 26 H Creatinine 1.53 H 1.26 H Estimated GFR 34 L 43 L BUN/Creatinine Ratio 20.3 20.6 Glucose 160 H 117 H Calcium 9.7 9.6 Total Bilirubin 0.5 AST 28 ALT 20 Alkaline Phosphatase 99 Total Protein 8.6 H Albumin 3.9 Globulin 4.7 H Albumin/Globulin Ratio 0.8 L Blood Type O Positive Antibody Screen Negative Assessment & Plan Assessment & Plan narrative: 1. Right intertrochanteric hip fracture, secondary to ground level fall. Present on admission and active. 2. Pathologic fracture secondary to osteoporosis, present on admission and active. 3. Atrial fibrillation, present on admission and stable. On chronic aspirin. 4. Hypertension, present on admission and stable. 5. Dementia, present on admission and stable. Plan: -orthopedics consultation, anticipate operative repair fracture. -pain medications -IV fluids -monitor heart rate and blood pressure Her POLST appears to indicate DNR, we will make DNR at this point. We will also contact her POA to further clarify level of care decisions. Time-Based Coding :: 35 min spent with patient and on the chart (including review of chart, obtaining history, exam, reviewing outside data, placing orders, documenting exam and treatment plan, and counseling patient) on 09/23 Quality VTE Deep Vein Thrombosis/Pulmonary Embolism Present on Admission: No MIPS - Admit I confirm the patient?s Advance Care Plan is present, Code status is documented, Surrogate decision maker is in patient?s record [If Yes, STOP here]: Yes MIPS - Meds 'Current medications' to include all prescriptions, gnlr-hhz-zxdivxb products, herbals, cannabis/cannabidiol products, and vitamin/mineral/dietary (nutritional) supplements. I have utilized all available resources to obtain, update, or review the patient?s current medications. [If Yes, STOP here]: Yes
[2024-09-23 08:00] VITALS: BP 150/80; PULSE 92; RESP 18; TEMP 36.6; O2SAT 97
[2024-09-23] MEDS: SODIUM CHLORIDE 0.9% FLUSH 10 ML IV ×2 (09:24→22:25)
--- NOTE | 2024-09-23 11:25 | CM.DANOTE ---
Initial DCP Assessment Visit Note Reviewed EMR and team rounds for status updates. Met with pt at bedside to introduce self and role, pt was found to be confused, in pain, and preferred to keep her eyes closed and only briefly interact. Pt lives modified indpendently at [facility], she uses a walker for mobility, requires staff assistance for showering, getting out of bed/getting dressed, and toileting assistance. Pt has advanced dementia, however can answer questions appropriately at times. Called pt's son, Souleymane, to update him on her status. Discussed his preference for her SNF rehab need post d/c from the hospital, he would like us to place a referral with [facility], as she has been there before. Will continue to keep him updated until she d/c's to SNF. Payor: Medicare PCP: Dr. Leija Pt is a 79 year-old F who presented to the ED via EMS after falling backwards at her [facility], hitting her head and fell to the ground, resulting in a L-hip fracture. Ortho was consulted, plan is for L-hip fixation surgery to be done tomorrow, 09/24/24. Faxed referral to [facility] for SNF rehab post d/c from . Plan for now is monitoring of Afib, pain management, NPO after midnight in preparation for surgery. DCP will continue to monitor and assist with transition at d/c. 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 No History Provided By Patient,Medical Record Has Patient been admitted in last 30 No days? Prior Living Arrangements Other Comment [facility] Household Members other Type of transporation used prior to Relies on Others admit Facility Name Admitted From: [facility] Willing to Return to Facility? Yes: [facility] Independent with ADL's No: Modified ind w/walker and staff assistance. Is patient alert and oriented? No: Confusional Needs Assistance With Bathing,Grooming,Meal Prep, Managing Medications,Home Chores / Shopping Caregiver for Another No DME Already Rented / Owned Bath Bench,Elevated Toilet Seat,FWW / Walker Patient/Family Preference Penitentiary Facility Barriers to Discharge No Discharge Plan Penitentiary Facility Referrals Initiated Penitentiary If patient plan is SNF: Has PASSR been Yes completed? Medicare Choice List Provided Yes Medicare choice list reviewed on [employer] electronic tablet with Has Agency SNF been contacted Yes Whiteboard Updated in Patient Room with Yes name and ext. # of Sheet Metal Worker Supervisor Review Status In Process Please Provide Date Initial DC 09/23/24 Assessment Was Performed
[2024-09-23] MEDS: SODIUM CHLORIDE 0.9% 1,000 ML 75 ML IV (12:09)
[2024-09-23 12:39] VITALS: BP 146/86; PULSE 89; RESP 20; TEMP 37.3; O2SAT 95
[2024-09-23] MEDS: HYDROMORPHONE 0.5 MG INJ IV ×4 (14:39→23:28)
[2024-09-23 15:00] LABS: Appearance Urine UA CLEAR; Bilirubin Urine UA NEGATIVE (NEGATIVE); Color Urine UA YELLOW; Glucose Urine UA NEGATIVE (Negative); Ketones Urine UA NEGATIVE (NEGATIVE); Leukocyte Esterase Urine UA 1+ (NEGATIVE); Nitrite Urine UA NEGATIVE (Negative); Occult Blood Urine UA 1+ (Negative); Protein Urine UA TRACE (Negative); Specific Gravity Urine UA 1.015 (1.000-1.035); Urobilinogen Urine UA 0.2 E.U./dL (0.2)
[2024-09-23 15:07] LABS: Bacteria Urine Many (>30); Culture Indicated Urine Specimen Cultured; Mucus Urine 1+ (Negative); RBC Urine 1-5/HPF (0-5/HPF); Squamous Epithelial Cell Urine 5-10 /HPF (0-5/HPF); Urine Volume 10mL (spun); WBC Urine 10-30/HPF (0-5/HPF)
--- NOTE | 2024-09-23 18:13 | P.HP_ITS ---
History of Present Illness History of Present Illness Date Patient Seen: 09/23/24 Time Patient Seen: 10:00 Date of Onset of Symptoms: 09/22/24 Chief complaint: GLF / LEFT hip pain Narrative: This is a 79-year-old female who lives in dementia Care who fell and noted the acute onset of left hip pain. She was living in a retirement situation about a year ago. I talked to her son he said that she had had some progressive decline and a history of a stroke. He notes she does seem to have a visual field defect and he thinks she is weak on the right side. He and the grandkids visit her. [facility] Medical History Transaminitis PFO (patent foramen ovale) Abnormality of mitral valve annulus White matter disease History of stroke Essential hypertension (06/25/16) Surgical History Status post breast lumpectomy History of cataract removal with insertion of prosthetic lens Status post tubal ligation History of tonsillectomy Status post appendectomy Family History Mother Age: 98 Heart disease Social History household members: other Smoking Status: Former smoker Tobacco: How many years used: 12 second hand exposure: No alcohol intake: current substance use type: marijuana (I smoke it once a week.) Meds Home Medications and Allergies Home Medications Medication Instructions Recorded Confirmed Type aspirin 81 mg tablet,delayed 81 mg PO DAILY 02/16/19 09/22/24 History release (Fam Low Dose Aspirin) cholecalciferol (vitamin D3) 25 25 mcg PO DAILY 03/28/20 09/22/24 History mcg (1,000 unit) capsule metoprolol succinate 100 mg 100 mg PO DAILY #90 tabs 11/08/21 09/22/24 Rx tablet,extended release 24 hr amlodipine 10 mg tablet 10 mg PO DAILY 09/22/24 09/22/24 History menthol 10 % topical cream 1 applic topical BID PRN R 09/22/24 09/22/24 History (Biofreeze (menthol)) SHOULDER PAIN sennosides 8.6 mg tablet (senna) 8.6 mg PO BEDTIME PRN Constipation 09/22/24 09/22/24 History Allergies Allergy/AdvReac Type Severity Reaction Status Date / Time Penicillins [PENICILLINS] Allergy Intermediate Rash and Verified 09/22/24 18:57 other stuff. I was in high school. Influenza Virus Vaccines AdvReac Intermediate (High Verified 09/22/24 18:57 Dose) A bunch of little bump around the site lisinopril [LISINOPRIL] AdvReac Intermediate GI issues Verified 09/22/24 18:57 Oxybegq-VGP-ZtX Reductase AdvReac Intermediate Exhaustion Verified 09/22/24 18:57 Inhibitor and flu [Skjvbih-Eyj-Kkp Reductase like Inhibitor] symptoms Cats Allergy Intermediate Normal Uncoded 09/22/24 18:57 Allergy symptoms. SULFA Allergy Mild Patient Uncoded 09/22/24 18:57 can't remember - I was a kid. Review of Systems Review of Systems Narrative: She was reportedly in her near normal state of health until the recent fall. No observed acute weakness, increased confusion or other acute changes, she is currently living at [facility] in a memory care unit. Exam Vital Signs (past 8 hours): - 09/23/24 12:39 Temperature 99.2 F Pulse Rate 89 Respiratory Rate 20 Blood Pressure 146/86 H Pulse Oximetry 95 Oxygen Flow Rate 0 Oxygen Delivery Method Room Air Oxygen Flow Rate 0 Narrative Exam Narrative: She is alert she is conversant she is appropriate she does have some confusion, HEENT is benign, lungs are clear, cor regular rate and rhythm, abdomen is benign, examination of the left lower extremity shows substantial pain with range of motion in the left hip, she can fire her toe flexors and extensors, calf is soft, there was significant shortening of the left leg, she is adequate capillary refill, Objective Labs 09/23/24 05:47 09/23/24 05:47 Labs: Laboratory Results - last 24 hr 09/22/24 09/22/24 09/23/24 18:53 20:05 05:47 WBC 13.6 H 10.8 RBC 4.62 4.22 Hgb 13.7 12.7 Hct 41.6 37.9 MCV 90.0 89.7 MCH 29.7 30.1 MCHC 32.9 33.5 RDW 14.7 14.6 Plt Count 373 331 Neut % (Auto) 68.6 65.1 Lymph % (Auto) 21.4 L 24.4 L [place] % (Auto) 6.8 8.6 Eos % (Auto) 2.4 0.9 L Baso % (Auto) 0.8 1.0 Neut # (Auto) 9300 H 7000 Lymph # (Auto) 2900 2600 [place] # (Auto) 900 900 Eos # (Auto) 300 100 Baso # (Auto) 100 100 Sodium 135 L 137 Potassium 4.5 4.5 Chloride 107 106 Carbon Dioxide 20 L 24 BUN 31 H 26 H Creatinine 1.53 H 1.26 H Estimated GFR 34 L 43 L BUN/Creatinine Ratio 20.3 20.6 Glucose 160 H 117 H Calcium 9.7 9.6 Total Bilirubin 0.5 AST 28 ALT 20 Alkaline Phosphatase 99 Total Protein 8.6 H Albumin 3.9 Globulin 4.7 H Albumin/Globulin Ratio 0.8 L Urine Color Urine Appearance Urine pH Ur Specific [place] Urine Protein Urine Glucose (UA) Urine Ketones Urine Occult Blood Urine Nitrate Urine Bilirubin Urine Urobilinogen Ur Leukocyte Esterase Urine RBC Urine WBC Ur Squamous Epith Cells Urine Bacteria Urine Mucus Ur Culture Indicated? Vol Urine Centrifuged Blood Type O Positive Antibody Screen Negative 09/23/24 14:50 WBC RBC Hgb Hct MCV MCH MCHC RDW Plt Count Neut % (Auto) Lymph % (Auto) [place] % (Auto) Eos % (Auto) Baso % (Auto) Neut # (Auto) Lymph # (Auto) [place] # (Auto) Eos # (Auto) Baso # (Auto) Sodium Potassium Chloride Carbon Dioxide BUN Creatinine Estimated GFR BUN/Creatinine Ratio Glucose Calcium Total Bilirubin AST ALT Alkaline Phosphatase Total Protein Albumin Globulin Albumin/Globulin Ratio Urine Color Yellow Urine Appearance Clear Urine pH 6.0 Ur Specific [place] 1.015 Urine Protein Trace H Urine Glucose (UA) Negative Urine Ketones Negative Urine Occult Blood 1+ H Urine Nitrate Negative Urine Bilirubin Negative Urine Urobilinogen 0.2 Ur Leukocyte Esterase 1+ H Urine RBC 1-5/hpf Urine WBC 10-30/hpf H Ur Squamous Epith Cells 5-10 /hpf H Urine Bacteria Many (>30) H Urine Mucus 1+ H Ur Culture Indicated? Specimen cultured Vol Urine Centrifuged 10ml (spun) Blood Type Antibody Screen X-rays show a comminuted left intertrochanteric fracture with fracture of the lesser trochanter across the intertrochanteric region Assessment & Plan Assessment and plan (1) Closed hip fracture: Status: Acute (2) Closed intertrochanteric fracture of left hip: Status: Acute (3) White matter disease: Problem details: CVA Status: Chronic (4) History of stroke: Status: Chronic Plan She has a comminuted left intertrochanteric hip fracture with separate fracture across her lesser trochanter. I have recommended open reduction internal fixation with an intramedullary tvao. We attempted to get her on the schedule for today but there was not spot in the operating room. I told her she can be stabilized and we will do adequate pain control I would rate her check and make sure she is medically optimized proceed with surgery tomorrow. The procedure options risks benefits and complications were discussed with her son and with the patient who does have some baseline dementia but also consented to surgery. Our goal is to stabilize her leg in order to allow her to be mobilized. Limits of the procedure options risks benefits and complications as well as overall medical status of the patient was discussed with the son in detail. Time-Based Coding :: [TOTAL MINUTES] spent with patient and on the chart (including review of chart, obtaining history, exam, reviewing outside data, placing orders, documenting exam and treatment plan, and counseling patient) on [DATE]. Quality VTE Deep Vein Thrombosis/Pulmonary Embolism Present on Admission: No
--- NOTE | 2024-09-23 19:00 | PC.NURSE ---
Pt alert to self and month, unsure of location. Yelling out in pain frequently, using expletives. Pt refusing repositioning, this RN provided education on purpose of repositioning and importance of skin protection, pressure offloading. Pt agreeable to floating heels and tilting bed for repositioning. Care ongoing.
[2024-09-23 20:00] VITALS: BP 166/101; PULSE 128; RESP 18; TEMP 38.6; O2SAT 90
[2024-09-23 21:33] VITALS: TEMP 38.6
[2024-09-23] MEDS: ACETAMINOPHEN 325 MG TABLET 975 MG PO (21:33)
[2024-09-23] MEDS: cefTRIAXone 1,000 MG in SODIUM CHLORIDE 0.9% 100 ML 200 MG IV (22:24)
[2024-09-23 23:28] VITALS: TEMP 38.5
[2024-09-24] VITALS (15 sets, daily range): BP systolic 97–169; BP diastolic 55–107; PULSE 79–124; RESP 11–18; TEMP 36.2–37.7; O2SAT 91–98; BMI 26.2
--- NOTE | 2024-09-24 | DI.RAD.S_ITS ---
PROCEDURE: XR HIP W PEL IF DONE LT 2V INDICATIONS: ORIF TECHNIQUE: 4 views of the hip were acquired. COMPARISON: [facility], , XR HIP W PEL IF DONE LT 2V, 09/22/2024, 18:51. FINDINGS: 4 C arm images demonstrate performance of ORIF of a intertrochanteric fracture of the left hip. IMPRESSION: Operative fluoroscopic images utilized during performance of ORIF of an intertrochanteric fracture of the left hip. No radiographic evidence of complications. Dictated by: Sahil Lowe M.D. on 09/25/2024 at 11:25 Approved by: Sahil Lowe M.D. on 09/25/2024 at 11:26
[2024-09-24] MEDS: SODIUM CHLORIDE 0.9% 1,000 ML 75 ML IV ×3 (01:32→23:09)
[2024-09-24] MEDS: HYDROMORPHONE 0.5 MG INJ IV ×7 (01:38→14:23)
[2024-09-24] MEDS: SODIUM CHLORIDE 0.9% FLUSH 10 ML IV ×2 (01:39→06:50)
--- NOTE | 2024-09-24 07:29 | PM.PN.1 ---
Subjective Subjective Interval history: Summary: Admitted for hip fracture, UA concerning for UTI. Anticipate operative repair today. S: She denies pain or dyspnea at the time of my visit. She is scheduled for surgery at 4:00 p.m.. Exam Vital Signs (past 8 hours): - 09/24/24 07:29 Temperature 99.8 F H Oxygen Delivery Method Room Air Oxygen Flow Rate 0 Narrative Exam Narrative: NAD, alert and oriented. Fluent speech. Lungs are clear, normal rate and effort. Heart is regular, no murmur gallop or rub. Abdomen is soft, non distended. Extremities are free of edema. Objective Labs 09/23/24 05:47 09/23/24 05:47 Labs: Laboratory Results - last 24 hr 09/23/24 14:50 Urine Color Yellow Urine Appearance Clear Urine pH 6.0 Ur Specific [place] 1.015 Urine Protein Trace H Urine Glucose (UA) Negative Urine Ketones Negative Urine Occult Blood 1+ H Urine Nitrate Negative Urine Bilirubin Negative Urine Urobilinogen 0.2 Ur Leukocyte Esterase 1+ H Urine RBC 1-5/hpf Urine WBC 10-30/hpf H Ur Squamous Epith Cells 5-10 /hpf H Urine Bacteria Many (>30) H Urine Mucus 1+ H Ur Culture Indicated? Specimen cultured Vol Urine Centrifuged 10ml (spun) PFSH Medical History Transaminitis PFO (patent foramen ovale) Abnormality of mitral valve annulus White matter disease History of stroke Essential hypertension (06/25/16) Surgical History Status post breast lumpectomy History of cataract removal with insertion of prosthetic lens Status post tubal ligation History of tonsillectomy Status post appendectomy Family History Mother Age: 98 Heart disease Social History household members: other Smoking Status: Former smoker Tobacco: How many years used: 12 second hand exposure: No alcohol intake: current substance use type: marijuana (I smoke it once a week.) Assessment & Plan Assessment & Plan narrative: 1. Right intertrochanteric hip fracture, secondary to ground level fall. Present on admission and active. 2. Pathologic fracture secondary to osteoporosis, present on admission and active. 3. Atrial fibrillation, present on admission and stable. On chronic aspirin. 4. Hypertension, present on admission and stable. 5. Dementia, present on admission and stable. Plan: -orthopedics consultation, anticipate operative repair of fracture today. -pain medications. -IV fluids -monitor heart rate and blood pressure -Ceftriaxone for UTI. Follow cultures. Her POLST appears to indicate DNR, we will make DNR at this point. We will also contact her POA to further clarify level of care decisions. Time-Based Coding :: [TOTAL MINUTES] spent with patient and on the chart (including review of chart, obtaining history, exam, reviewing outside data, placing orders, documenting exam and treatment plan, and counseling patient) on [DATE]. Quality VTE Deep Vein Thrombosis/Pulmonary Embolism Present on Admission: No
[2024-09-24] MEDS: METOPROLOL ER 50 MG TABLET 100 MG PO (08:46)
[2024-09-24] MEDS: AMLODIPINE 5 MG TABLET 10 MG PO (08:49)
--- NOTE | 2024-09-24 12:17 | CM.DPC ---
DCP Continued: Reviewed EMR and team rounds for pt?s medical status. Per rounds, pt scheduled for hip surgery on Friday, 09/24 at 1600. Per CM assessment, pt son identified preference for anticipated SNF discharge at [facility]. DCP spoke with [facility] Admissions, Xiao, and confirmed that an initial referral was sent earlier, they are awaiting PT/OT evaluations post-surgery. Plan: Anticipating SNF Rehab post surgery, CM Team will continue to follow for coordination of discharge plans. JOJO Masters
--- NOTE | 2024-09-24 17:14 | PM.PREOP ---
Pre-operative Note Interval Note History & Physical reviewed/Exam performed by Physician: Yes Changes to H&P: No
[2024-09-24] MEDS: LACTATED RINGERS 1,000 ML 42 ML IV (17:30)
--- NOTE | 2024-09-24 17:35 | PC.NURSE ---
Patient moaning out loud throughout the morning in pain. SBP and DBP elevated and she is given scheduled antihypertensive medication as well as PRN. ok'd to increase IV 0.5mg hydromorphone to q 1 hr PRN. Patient appears more comfortable, snoring loudly. She is allowed clear liquids this a.m. only interested in juice and then kept NPO for the rest of the day. She is transported to pre-op area approximately 1710 via bed for repair of fractured hip.
--- NOTE | 2024-09-24 19:11 | SUR.HOLD ---
Placed patietn on continous pulse oximeter for monitoring.
--- NOTE | 2024-09-24 20:39 | P.OP_ITS ---
Operative Date/Time/Diagnoses Date of procedure: 09/24/24 Time of procedure: 21:00 Pre-op diagnosis: Left intertrochanteric hip fracture Post-op diagnosis: same Procedure & Clinicians Procedure: Open reduction internal fixation left proximal hip fracture, intertrochanteric hip fracture with cephalomedullary nail CPT code 30255 Same procedure as scheduled: Yes Indications: The patient is a 79-year-old female with a displaced left proximal femur fracture, intertrochanteric fracture. She has dementia at baseline. She was indicated for operative fixation to stabilize her fracture and allow early mobilization decrease the risks of prolonged immobility. Consent was obtained with the patient's POA her son Uzair Via telephone consent. The risks and benefits of the procedure have been discussed with the patient's POA The risks of surgery include but are not limited to infection, malunion, nonunion, persistence of pain, damage to nerves and blood vessels, posttraumatic arthritis, DVT, PE, coardiopulmonary complications and . The patient expressed a thorough understanding of the risks and benefits of surgery and has elected to proceed. Consent was signed Surgeon: Opal Aparicio Click Yes if Unassisted: Yes Anesthesia Type: General and Local Operative Notes Findings: Displaced comminuted proximal femur fracture intertrochanteric fracture left Closure Type: primary Specimen(s): none sent Prosthetic devices, grafts, tissues, transplants, or devices: Banks and Nephew cephalomedullary nail InterTAN short 11.5 x 18 cm 100/95 interlocking lag screw and compression screw 5 x 32.5mm distal locking screw Estimated Blood Loss (mL): 30 Blood products transfused: none Tourniquet time (min): 0 Procedure in detail: Procedure cephalomedullary nail intertrochanteric hip fracture the CPT code 17092 Side: Left Implant Banks [employer] Nephew 11.5 x 18 cm cephalomedullary nail intertan Procedure: The patient was seen and the site of surgery was marked in the preoperative area. This was the left hip. Patient was brought to the operating room and placed on the operative table and general anesthesia was administered. The patient was positioned on the fracture table in standard fashion with a well-padded boots and a padded peroneal post. An SCD was on the contralateral leg. A formal time-out was called to confirm the patient's side and site of surgery administration of preoperative antibiotics. All were in agreement. The operative leg was then gently manipulated under fluoroscopic guidance to obtain a closed reduction in near anatomic alignment. At this point the operative extremity was prepped and draped in the standard sterile manner. The starting point was marked out using fluoroscopic guidance and marked on the skin. A guidewire was placed percutaneously and the starting point was obtained. Incision was made over the guidewire. An opening drill was inserted to the level of the lesser trochanter. The opening Reamer and guidewire were then removed. An 18 cm cephalomedullary nail was selected. The 11.5 x 18 cm nail was then slid into the canal. The nail was advanced to the proper depth and rotation. The guide for the cephalomedullary screw was then inserted into the external handle. An incision was made and the guide was placed down to the bone. A guidewire was placed to the proper depth into the femoral head and this was confirmed on AP and lateral imaging. The tip apex distance was evaluated and appropriate. This was measured. Next the outer cortex was drilled for the interlocking screw and the anti rotation bar was placed. The cephalomedullary screw length was then measured off the drill again. A 100 mm lag screw was selected and the corresponding interlocking compression screw. A guidewire was then over drilled and the lag screw placed. The anti rotation bar was removed and then the locking compression screws were placed and confirmed on biplanar fluoroscopy. The integrated compression screw was tightened. Attention was turned to the distal interlock. This was placed with the guide in the standard technique using the guide jig. AP and lateral images were captured in the or confirming alignment hardware placement. Wounds were irrigated and closed in layers with 0 Vicryl in the deep fascia. 2- 0 in the subcutaneous tissue and nava in the skin. 0.25% Marcaine with epinephrine was injected into the incision sites for local anesthetic. 1 g of TXA was given IV. Sterile dressings were applied. There no immediate complications. Surgical counts were correct. The patient tolerated the procedure well was taken to recovery room . Postoperative plan. Weightbear as tolerated to the surgical extremity. Work with physical therapy and occupational therapy. Discharge by primary team. Likely intermediate. Monitor hemoglobin and hematocrit postoperatively may require transfusion if needed. Encourage incentive spirometry. SCDs and Lovenox for DVT prophylaxis. Recommend Lovenox 4 weeks for hip fracture. Follow-up [facility] in 2 weeks for wound check and repeat x-rays. Keep dressing clean dry and intact. May change of saturated. Complications: none Post-operative Condition: stable Disposition: PACU Plan for aftercare: Weightbear as tolerated. Mobilization as tolerated. DVT prophylaxis with Lovenox. If patient has significant risk for higher level anticoagulation then aspirin 81 mg b.i.d. instead of Lovenox is reasonable. SCDs on while in bed in the hospital. Anticipate intermediate discharge.
[2024-09-24] MEDS: CEFAZOLIN 2 GM/100 ML PREMIX 100 ML IV (20:49)
--- NOTE | 2024-09-24 21:11 | SUR.OPER ---
Patient supine on padded [place] table, one arm on padded arm board at <90, other arm padded and secured with tape across patient's chest, both legs secured in padded traction boots and positioned per surgeon, padded post at patient's groin, pressure points checked and padded.
[2024-09-24] MEDS: BUPIVACAINE 0.25% (PF) 30 ML, EPINEPHrine 0.15 MG INJ (21:19)
[2024-09-24] MEDS: ACETAMINOPHEN IV 1,000 MG/100 ML VIAL 400 MG IV (21:35)
[2024-09-24] MEDS: TRANEXAMIC ACID 1,000 MG in SODIUM CHLORIDE 0.9% 100 ML 200 MG IV (21:40)
[2024-09-24] MEDS: OXYCODONE IR 5 MG TABLET PO (23:08)
[2024-09-24] MEDS: cefTRIAXone 1,000 MG in SODIUM CHLORIDE 0.9% 100 ML 200 MG IV (23:09)
--- NOTE | 2024-09-24 23:33 | PC.NURSE ---
Patient arrived from PACU at 2230. Patient repeating no to most questions, including this rn asking for patient to state her name and birthday. Call light within reach, bed in lowest position, lights off with door cracked for low stimulation and observation.
[2024-09-25] VITALS (8 sets, daily range): BP systolic 103–150; BP diastolic 73–86; PULSE 90–124; RESP 16–20; TEMP 36.1–37.1; O2SAT 93–99
[2024-09-25] MEDS: SODIUM CHLORIDE 0.9% FLUSH 10 ML IV ×2 (01:42→10:07)
[2024-09-25 07:40] LABS: Add Manual Diff / Slide Review NO; Basophils Absolute Auto 0 /uL (0-100); Basophils Percent Auto 0.1 % (0-2); Eosinophils Absolute Auto 0 /uL (0-450); Hematocrit 34.4 % (36-46); Hemoglobin 11.5 g/dL (12.0-16.0); Lymphocytes Absolute Auto 800 /uL (1100-4500); Lymphocytes Percent Auto 7.3 % (25-40); Mean Corpuscular HGB Conc 33.5 % (30-36); Mean Corpuscular Hemoglobin 29.8 PG (26-34); Mean Corpuscular Volume 89.1 fL (80-100); Monocytes Absolute Auto 600 /uL (0-900); Monocytes Percent Auto 5.2 % (3-14); Neutrophils Absolute Auto 9500 /uL (1500-7000); Neutrophils Percent Auto 87.4 % (50-75); Platelet Count 348 X10^3/uL (150-400); Red Blood Cell Count 3.86 X10^6/uL (4.0-5.2); Red Cell Distribution Width 14.6 % (11.6-14.8); White Blood Cell Count 10.9 X10^3/uL (4.5-11.0)
[2024-09-25 07:48] LABS: BUN Creatinine Ratio 15.9 (6-22); Blood Urea Nitrogen 18 mg/dL (7-17); Calcium 9.3 mg/dL (8.4-10.2); Carbon Dioxide 19 mmol/L (22-32); Chloride 106 mmol/L (98-107); Estimated Glomerular Filt Rate 49 mL/min (>60); Glucose 144 mg/dL (80-110); HEMOLYSIS < 15 (0-50); Potassium 4.3 mmol/L (3.4-5.1); Sodium 135 mmol/L (137-145)
--- NOTE | 2024-09-25 08:04 | P.PN_ITS ---
Subjective Subjective Date Patient Seen: 09/25/24 Time Patient Seen: 08:04 Interval history: Patient found resting comfortably in bed. He is nausea vomiting fever or chills. Denies any increased pain or numbness in the left leg. Only complaint is that her mouth is dry. She does not recall getting up or moving around. She does not recall having surgery last night. Exam Vital Signs (past 8 hours): - 09/25/24 00:45 09/25/24 01:45 09/25/24 02:36 Temperature 97 F L 97 F L Pulse Rate 124 H 90 Respiratory Rate 16 20 Blood Pressure 143/73 H 103/77 Pulse Oximetry 97 99 93 Oxygen Delivery Method Nasal Cannula Oxygen Flow Rate 4 4 3 Fraction of Inspired Oxygen 32 Fraction of Inspired Oxygen 32 SaO2/FiO2 Ratio 290 Oxygen Delivery Method Nasal Cannula Oxygen Flow Rate 3 Narrative Exam Narrative: Aquacel dressing clean dry and intact. Patient is unwilling to dorsiflex or plantar flex against resistance however she is willing to flex and extend her toes. It is observed she is able to dorsiflex and plantar flex both ankles bilaterally. No increased pain to compression of the posterior calf or thigh. Sensation grossly intact to light touch of the bilateral lower extremities. SCDs are on and functioning. Objective Labs 09/25/24 07:32 09/25/24 07:32 Labs: Laboratory Results - last 24 hr 09/25/24 07:32 WBC 10.9 RBC 3.86 L Hgb 11.5 L Hct 34.4 L MCV 89.1 MCH 29.8 MCHC 33.5 RDW 14.6 Plt Count 348 Neut % (Auto) 87.4 H Lymph % (Auto) 7.3 L [place] % (Auto) 5.2 Eos % (Auto) 0.0 L Baso % (Auto) 0.1 Neut # (Auto) 9500 H Lymph # (Auto) 800 L [place] # (Auto) 600 Eos # (Auto) 0 Baso # (Auto) 0 Sodium 135 L Potassium 4.3 Chloride 106 Carbon Dioxide 19 L BUN 18 H Creatinine 1.13 H Estimated GFR 49 L BUN/Creatinine Ratio 15.9 Glucose 144 H Calcium 9.3 PFSH Medical History Transaminitis PFO (patent foramen ovale) Abnormality of mitral valve annulus White matter disease History of stroke Essential hypertension (06/25/16) Surgical History Status post breast lumpectomy History of cataract removal with insertion of prosthetic lens Status post tubal ligation History of tonsillectomy Status post appendectomy Family History Mother Age: 98 Heart disease Social History household members: other Smoking Status: Former smoker Tobacco: How many years used: 12 second hand exposure: No alcohol intake: current substance use type: marijuana (I smoke it once a week.) Assessment & Plan Post-op Postoperative Procedures: Procedures Operation Date: 09/24/24 17:00 Actual Procedure Side Surgeon p hip ORIF Nail Left Opal Aparicio MD Postoperative day: 1 Postoperative status: doing well Postoperative plan: routine post-op care and ambulate Postoperative plan narrative: Weightbear as tolerated. Mobilization as tolerated with PT. Multimodal pain control. DVT prophylaxis with Lovenox for 4 weeks. SCDs on while in bed in the hospital. Monitor hemoglobin and hematocrit postoperatively may require transfusion if needed. Encourage incentive spirometry. Discharge by primary team. Anticipate fpc discharge. Follow-up [facility] in 2 weeks for wound check and repeat x-rays. Keep dressing clean dry and intact. May change of saturated. Time Spent With Patient Time with patient: 15-24 minutes Quality VTE Deep Vein Thrombosis/Pulmonary Embolism Present on Admission: No
[2024-09-25] MEDS: OXYCODONE IR 5 MG TABLET PO ×4 (08:10→22:02)
[2024-09-25] MEDS: METOPROLOL ER 50 MG TABLET 100 MG PO (08:11)
[2024-09-25] MEDS: ASPIRIN EC 81 MG TABLET PO (08:11)
[2024-09-25] MEDS: DOCUSATE 100 MG CAPSULE PO ×2 (08:11→22:02)
[2024-09-25] MEDS: AMLODIPINE 5 MG TABLET 10 MG PO (08:11)
[2024-09-25] MEDS: ENOXAPARIN 40 MG/0.4 ML SYRINGE SUBCUT (08:12)
[2024-09-25] MEDS: polyethylene glycoL 3350 17 GM POWD.PACK PO (08:12)
--- NOTE | 2024-09-25 08:30 | P.PN_ITS ---
Subjective Subjective Interval history: S: She denies hip pain. She does note that her grandmother made her breakfast this morning, she does have a history of dementia. Exam Vital Signs (past 8 hours): - 09/25/24 00:45 09/25/24 01:45 09/25/24 02:36 Temperature 97 F L 97 F L Pulse Rate 124 H 90 Respiratory Rate 16 20 Blood Pressure 143/73 H 103/77 Pulse Oximetry 97 99 93 Oxygen Delivery Method Nasal Cannula Oxygen Flow Rate 4 4 3 Fraction of Inspired Oxygen 32 09/25/24 08:07 09/25/24 08:11 Temperature 98.2 F Pulse Rate 104 H Respiratory Rate 20 Blood Pressure 128/82 128/82 Pulse Oximetry 96 Oxygen Delivery Method Oxygen Flow Rate 0 Fraction of Inspired Oxygen Fraction of Inspired Oxygen 32 SaO2/FiO2 Ratio 290 Oxygen Delivery Method Nasal Cannula Oxygen Flow Rate 0 Narrative Exam Narrative: NAD, alert and oriented. Fluent speech. Lungs are clear, normal rate and effort. Heart is regular, no murmur gallop or rub. Abdomen is soft, non distended. Extremities are free of edema. Wound site unremarkable. Objective Labs 09/25/24 07:32 09/25/24 07:32 Labs: Laboratory Results - last 24 hr 09/25/24 07:32 WBC 10.9 RBC 3.86 L Hgb 11.5 L Hct 34.4 L MCV 89.1 MCH 29.8 MCHC 33.5 RDW 14.6 Plt Count 348 Neut % (Auto) 87.4 H Lymph % (Auto) 7.3 L [place] % (Auto) 5.2 Eos % (Auto) 0.0 L Baso % (Auto) 0.1 Neut # (Auto) 9500 H Lymph # (Auto) 800 L [place] # (Auto) 600 Eos # (Auto) 0 Baso # (Auto) 0 Sodium 135 L Potassium 4.3 Chloride 106 Carbon Dioxide 19 L BUN 18 H Creatinine 1.13 H Estimated GFR 49 L BUN/Creatinine Ratio 15.9 Glucose 144 H Calcium 9.3 PFSH Medical History Transaminitis PFO (patent foramen ovale) Abnormality of mitral valve annulus White matter disease History of stroke Essential hypertension (06/25/16) Surgical History Status post breast lumpectomy History of cataract removal with insertion of prosthetic lens Status post tubal ligation History of tonsillectomy Status post appendectomy Family History Mother Age: 98 Heart disease Social History household members: other Smoking Status: Former smoker Tobacco: How many years used: 12 second hand exposure: No alcohol intake: current substance use type: marijuana (I smoke it once a week.) Assessment & Plan Assessment & Plan narrative: 1. Right intertrochanteric hip fracture, secondary to ground level fall. Present on admission and active. 2. Pathologic fracture secondary to osteoporosis, present on admission and active. 3. Atrial fibrillation, present on admission and stable. On chronic aspirin. 4. Hypertension, present on admission and stable. 5. Dementia, present on admission and stable. Plan: -S/P operative repair of fracture 09/24. -pain medications. -IV fluids -monitor heart rate and blood pressure -Ceftriaxone for UTI. Follow cultures. Her POLST appears to indicate DNR, we will make DNR at this point. DNR clarified with her son, Uzair. Time-Based Coding :: [TOTAL MINUTES] spent with patient and on the chart (including review of chart, obtaining history, exam, reviewing outside data, placing orders, documenting exam and treatment plan, and counseling patient) on [DATE]. Quality VTE Deep Vein Thrombosis/Pulmonary Embolism Present on Admission: No
--- NOTE | 2024-09-25 12:47 | PT.IIE ---
Current Diagnoses Other osteoporosis with current pathological fracture, right femur, initial encounter for fracture (09/22/24) White matter disease, unspecified (09/22/24) Fracture of unspecified part of neck of unspecified femur, initial encounter for closed fracture (09/22/24) Displaced intertrochanteric fracture of left femur, initial encounter for closed fracture (09/22/24) Personal history of transient ischemic attack (TIA), and cerebral infarction without residual deficits (09/22/24) Surgery Performed Operation Date: 09/24/24 17:00 Actual Procedures p hip ORIF Nail(Left) - Opal Aparicio MD Surgical History (Last Reviewed 09/24/24 @ 07:35 by Yoshi Reeder MD) History of cataract removal with insertion of prosthetic lens History of tonsillectomy Status post appendectomy Status post breast lumpectomy Status post tubal ligation Medical History (Last Reviewed 09/24/24 @ 07:35 by Yoshi Reeder MD) Abnormality of mitral valve annulus Essential hypertension (06/25/16) History of stroke PFO (patent foramen ovale) Transaminitis White matter disease Physical Therapy Inpatient Evaluation/Re-Eval M1 PT/OT-IP Prior Functional Status Start: 09/25/24 12:28 Freq: NEEDED Status: Active Protocol: Document 09/25/24 12:29 AMB (Rec: 09/25/24 12:46 AMB [id number]) Medical Review Prior Functional Status Medical History Reviewed Yes Communication At baseline Kami lives in a dementia care unit Mobility and Gait Pt reports she used a FWW before her fall Activities of Daily Living and IADL's Dementia limits significantly Social History Household Members other Living Arrangements Other Additional Social History Comment Lived in dementia care M2 PT-IP Current Condition Start: 09/25/24 12:28 Freq: NEEDED Status: Active Protocol: Document 09/25/24 12:29 AMB (Rec: 09/25/24 12:46 AMB [id number]) Physical Therapy Current Condition Current Condition Evaluation Date 09/25/24 Treatment Diagnosis L hip ORIF s/p GLF Onset Date 09/24/24 M3 PT-IP Subjective Start: 09/25/24 12:28 Freq: NEEDED Status: Active Protocol: Document 09/25/24 12:29 AMB (Rec: 09/25/24 12:46 AMB [id number]) Subjective Physical Therapy Visit Type Type Initial Evaluation Visit Start Time 11:45 Visit Stop Time 12:30 Physical Therapy Visit Comments Patient Comments When asked pt states she has pain, is talking about being in a car and whether or not she can drive Therapy Pain Assessment Pain When Pain Assessed At Rest Pain Present Pain Present Pain Reported Location hips Pain Behaviors Guarding,Holding Area,Wincing Pain Management Techniques Apply Cold,Modification of Treatment,Re-positioning, Timing of Activity with Medications M4 PT-IP Mobility and Gait Start: 09/25/24 12:28 Freq: NEEDED Status: Active Protocol: Document 09/25/24 12:29 AMB (Rec: 09/25/24 12:46 AMB [id number]) PT-Bed Mobility Assessment Rolling Type of Rolling Log Rolling Level of Assist Maximal Assistance,1 Person Assistance Supine to Sit Supine to Sit Maximum Assistance,2 Person Assistance,Head of Bed Elevated Sit to Supine Sit to Supine Maximum Assistance,2 Person Assistance Scooting Scooting Up and Down in Bed Dependent PT-Transfer Assessment Comments Mobility Comments Not assessed Gait Assessment Comments Gait Comments Not assessed M5 PT-IP Objective Assessments Start: 09/25/24 12:28 Freq: NEEDED Status: Active Protocol: Document 09/25/24 12:29 AMB (Rec: 09/25/24 12:46 AMB [id number]) Orientation Orientation/Cognition Level of Alertness Confusional State Comments Pt is talking about situations /people who are not in the room, but when oriented to the fact that she just had surgery and is in the hospital is able to give some details about her life, she knows that her son lives in [place] and that she has grandchildren for example. Gross Range of Motion Upper Extremity ROM Assessment Within Functional Limits Lower Extremity ROM Assessment Left Impaired Impairments Pain limits movement of the L leg, patient limited with ankle pumps on the L where she can perform them on the right Strength Upper Extremity Strength Assessment Within Functional Limits Lower Extremity Strength Assessment Left Impaired M6 PT-IP Treatment Start: 09/25/24 12:28 Freq: NEEDED Status: Active Protocol: Document 09/25/24 12:29 AMB (Rec: 09/25/24 12:46 AMB [id number]) Physical Therapy Treatment Exercises Exercises Ankle Pumps Education Education Provided Weight Bearing Status,Safety M7 PT-IP Assessment and Plan Start: 09/25/24 12:28 Freq: NEEDED Status: Active Protocol: Document 09/25/24 12:29 AMB (Rec: 09/25/24 12:46 AMB [id number]) PT Summary Assessment and Plan Potential Rehabilitation Potential Good Status of Condition at Evaluation Evolving Summary Impairments Pain,ROM,Strength,Balance, Cognition,Bed Mobility, Transfers,Gait,Activity Tolerance Assessment Summary Kami's baseline was ambulating with a FWW in dementia care as far as she can report. Currently she required MaxAx2 for bed mobility and was unable/ unwilling to attempt standing, she did sit on the edge of bed for 1 minute with CGA. Pain and her dementia are limiting factors, as she says no to most things and is not motivated to move at this time . Would recommend slime lift for nursing and 1x/day for PT given pt's poor tolerance. SNF rehabilitation needed when medically stable. Goals Bed Mobility Goal Minimal Assistance Transfer Goal Moderate Assistance,Front Wheeled Walker Gait Goal Maximal Assistance,Front Wheel Walker Gait Distance 5 Days to Meet Goals 5 Frequency of Treatment Frequency Of Treatment Once a Day Treatment Plan Physical Therapy Treatment Plan Bed Mobility Training,Transfer Training,Gait Training, Therapeutic Exercise,Balance Retraining,Post Op Education, Discharge Planning Other Recommendations and Next Treatment Bed mobility, sit to stand Focus training Weight Bearing Status Weight Bearing Status Weight Bear as Tolerated Recommendations To Nursing Amount of Assist Needed Mechanical Lift Discharge Recommendations PT Discharge Recommendations SNF Rehab Transportation Needs at Discharge Wheelchair/Cabulance
--- NOTE | 2024-09-25 13:12 | CM.DPC ---
DCP SNF Planning: Per MD and Ortho, pt tolerated hip surgery well and being treated for UTI with IV-Abx as well and to work with PT/OT today (no OT on the weekends). Per PT charlie, recommending SNF at d/c. SW faxed and secure emailed PT charlie and MD and Ortho prog notes to [facility] to review and left msg on admission phone requesting review and to confirm they can accept and potential that pt could be ready for d/c by tomorrow 09/26/23 and Medicare eligible for d/c to SNF by today. PASRR previously completed in anticipation of SNF. Plan; SW to follow closely for [facility] review to confirm they can accept before return to [facility]. SW to keep travis Dunne updated. MEHUL Mendoza
[2024-09-25] MEDS: SENNOSIDES 8.6 MG TABLET 17.2 MG PO (22:01)
[2024-09-25] MEDS: cefTRIAXone 1,000 MG in SODIUM CHLORIDE 0.9% 100 ML 200 MG IV (22:02)
[2024-09-26] MEDS: SODIUM CHLORIDE 0.9% 1,000 ML 75 ML IV ×2 (00:40→13:52)
[2024-09-26] MEDS: OXYCODONE IR 5 MG TABLET PO ×2 (02:58→20:52)
[2024-09-26 08:06] VITALS: BP 143/84; PULSE 78
[2024-09-26] MEDS: METOPROLOL ER 50 MG TABLET 100 MG PO (08:06)
[2024-09-26] MEDS: DOCUSATE 100 MG CAPSULE PO (08:08)
[2024-09-26] MEDS: ENOXAPARIN 40 MG/0.4 ML SYRINGE SUBCUT (08:08)
[2024-09-26] MEDS: ASPIRIN EC 81 MG TABLET PO (08:08)
[2024-09-26] MEDS: AMLODIPINE 5 MG TABLET 10 MG PO (08:08)
[2024-09-26] MEDS: polyethylene glycoL 3350 17 GM POWD.PACK PO (08:08)
[2024-09-26] MEDS: SODIUM CHLORIDE 0.9% FLUSH 10 ML IV ×2 (08:09→21:03)
[2024-09-26 08:13] VITALS: BP 149/92; PULSE 81; RESP 16; TEMP 36.8; O2SAT 94
--- NOTE | 2024-09-26 09:34 | PM.PN.1 ---
Subjective Subjective Interval history: Hospital course: This is a pleasant 79-year-old female with history of dementia who was admitted with ground level fall and hip fracture. She was status post ORIF on September 24. No postoperative complications. Subjective: Good pain control and no issues with dyspnea or chest pain. She does have cognitive impairment. Exam Vital Signs (past 8 hours): - 09/26/24 08:06 09/26/24 08:13 Temperature 98.3 F Pulse Rate 78 81 Respiratory Rate 16 Blood Pressure 143/84 H 149/92 H Pulse Oximetry 94 Oxygen Flow Rate 0 Fraction of Inspired Oxygen 32 SaO2/FiO2 Ratio 290 Oxygen Delivery Method Nasal Cannula Oxygen Flow Rate 0 Narrative Exam Narrative: NAD, alert and oriented. Fluent speech. Lungs are clear, normal rate and effort. Heart is regular, no murmur gallop or rub. Abdomen is soft, non distended. Extremities are free of edema. Left hip wound is unremarkable. Objective Labs 09/25/24 07:32 09/25/24 07:32 PFSH Medical History Transaminitis PFO (patent foramen ovale) Abnormality of mitral valve annulus White matter disease History of stroke Essential hypertension (06/25/16) Surgical History Status post breast lumpectomy History of cataract removal with insertion of prosthetic lens Status post tubal ligation History of tonsillectomy Status post appendectomy Family History Mother Age: 98 Heart disease Social History household members: other Smoking Status: Former smoker Tobacco: How many years used: 12 second hand exposure: No alcohol intake: current substance use type: marijuana (I smoke it once a week.) Assessment & Plan Assessment & Plan narrative: 1. Right intertrochanteric hip fracture, secondary to ground level fall. Present on admission and active. 2. Pathologic fracture secondary to osteoporosis, present on admission and active. 3. Atrial fibrillation, present on admission and stable. On chronic aspirin. 4. Hypertension, present on admission and stable. 5. Dementia, present on admission and stable. Plan: -S/P operative repair of fracture 09/24. -pain medications. -IV fluids -monitor heart rate and blood pressure -Ceftriaxone for UTI (3-5 days). Follow cultures. BRIAN: care home facility on September 26 or depending on their ability to take her. Her POLST appears to indicate DNR, we will make DNR at this point. DNR clarified with her son, Uzair. Time-Based Coding :: [TOTAL MINUTES] spent with patient and on the chart (including review of chart, obtaining history, exam, reviewing outside data, placing orders, documenting exam and treatment plan, and counseling patient) on [DATE]. Quality VTE Deep Vein Thrombosis/Pulmonary Embolism Present on Admission: No
[2024-09-26 10:29] VITALS: PULSE 81
--- NOTE | 2024-09-26 11:02 | PM.PNPO.1 ---
Subjective Subjective Date Patient Seen: 09/26/24 Time Patient Seen: 11:03 Interval history: Lying in bed no acute distress. Postop day 2 left hip cephalomedullary nail for intertrochanteric hip fracture. Exam Vital Signs (past 8 hours): - 09/26/24 08:06 09/26/24 08:13 09/26/24 10:29 Temperature 98.3 F Pulse Rate 78 81 81 Respiratory Rate 16 Blood Pressure 143/84 H 149/92 H Pulse Oximetry 94 Oxygen Flow Rate 0 Fraction of Inspired Oxygen 32 SaO2/FiO2 Ratio 290 Oxygen Delivery Method Nasal Cannula Oxygen Flow Rate 0 Narrative Exam Narrative: Alert answers questions. Complains of spasms in the leg when she tries to move it. Demonstrates dorsiflexion plantar flexion of the left and right ankles. Aquacel on the left hip clean and dry and intact. Thigh and calf are soft. Objective Labs 09/25/24 07:32 09/25/24 07:32 PFSH Medical History Transaminitis PFO (patent foramen ovale) Abnormality of mitral valve annulus White matter disease History of stroke Essential hypertension (06/25/16) Surgical History Status post breast lumpectomy History of cataract removal with insertion of prosthetic lens Status post tubal ligation History of tonsillectomy Status post appendectomy Family History Mother Age: 98 Heart disease Social History household members: other Smoking Status: Former smoker Tobacco: How many years used: 12 second hand exposure: No alcohol intake: current substance use type: marijuana (I smoke it once a week.) Assessment & Plan Post-op Postoperative Procedures: Procedures Operation Date: 09/24/24 17:00 Actual Procedure Side Surgeon p hip ORIF Nail Left Opal Aparicio MD Postoperative day: 2 Postoperative status: doing well Postoperative plan: routine post-op care Postoperative plan narrative: Doing well postop day 2 cephalomedullary nail for intertrochanteric hip fracture. Weightbear as tolerated. On antibiotics for UTI. Lovenox and SCDs for DVT prophylaxis. Awaiting dispo to snf. Follow up [facility] 2 weeks for staple removal. And x-rays Time Spent With Patient Time with patient: less than 15 minutes Quality VTE Deep Vein Thrombosis/Pulmonary Embolism Present on Admission: No
[2024-09-26 11:10] LABS: Hematocrit 33.8 % (36-46); Hemoglobin 11.2 g/dL (12.0-16.0); Mean Corpuscular HGB Conc 33.3 % (30-36); Mean Corpuscular Hemoglobin 29.6 PG (26-34); Mean Corpuscular Volume 88.9 fL (80-100); Platelet Count 363 X10^3/uL (150-400); Red Cell Distribution Width 14.5 % (11.6-14.8); White Blood Cell Count 10.8 X10^3/uL (4.5-11.0)
[2024-09-26 11:18] LABS: BUN Creatinine Ratio 17.6 (6-22); Blood Urea Nitrogen 21 mg/dL (7-17); Calcium 9.4 mg/dL (8.4-10.2); Carbon Dioxide 24 mmol/L (22-32); Chloride 106 mmol/L (98-107); Estimated Glomerular Filt Rate 46 mL/min (>60); Glucose 100 mg/dL (80-110); HEMOLYSIS < 15 (0-50); Potassium 4.1 mmol/L (3.4-5.1); Sodium 137 mmol/L (137-145)
--- NOTE | 2024-09-26 12:23 | PT.IPTN ---
Current Diagnoses Other osteoporosis with current pathological fracture, right femur, initial encounter for fracture (09/22/24) White matter disease, unspecified (09/22/24) Fracture of unspecified part of neck of unspecified femur, initial encounter for closed fracture (09/22/24) Displaced intertrochanteric fracture of left femur, initial encounter for closed fracture (09/22/24) Personal history of transient ischemic attack (TIA), and cerebral infarction without residual deficits (09/22/24) Surgery Performed Operation Date: 09/24/24 17:00 Actual Procedures p hip ORIF Nail(Left) - Opal Aparicio MD Physical Therapy Treatment Note M2 PT-IP Current Condition Start: 09/25/24 12:28 Freq: NEEDED Status: Active Protocol: Document 09/25/24 12:29 AMB (Rec: 09/25/24 12:46 AMB [id number]) Physical Therapy Current Condition Current Condition Evaluation Date 09/25/24 Treatment Diagnosis L hip ORIF s/p GLF Onset Date 09/24/24 M3 PT-IP Subjective Start: 09/25/24 12:28 Freq: NEEDED Status: Active Protocol: Document 09/26/24 11:54 MB (Rec: 09/26/24 12:23 MB [id number]) Subjective Physical Therapy Visit Type Type Treatment Note Visit Start Time 11:54 Visit Stop Time 12:17 Physical Therapy Visit Comments Patient Comments Pt presents with confusion, conversation does not back sense, she talks about cats, cats in the room and the love of her life and that she does not want to move, does not trust therapist, is not going to move after agreeing to mobility with PT. Therapy Pain Assessment Pain When Pain Assessed During Mobility Pain Present Pain Present Pain Reported Location Left Leg Scale Used AnthonyUmmSuoza (Faces) M4 PT-IP Mobility and Gait Start: 09/25/24 12:28 Freq: NEEDED Status: Active Protocol: Document 09/26/24 11:54 MB (Rec: 09/26/24 12:23 MB [id number]) PT-Bed Mobility Assessment Scooting Scooting to Edge of Bed Dependent PT-Transfer Assessment Comments Mobility Comments Attempted scooting to EOB to the left with PT supporting pt 's left leg after she performs APs and is agreeable and then pt tries to scoot twice to the left to the side of the bed and she c/o pain and becomes increasingly agitated and does not participate further with PT. +2 dependent with bed in Trendelenburg to scoot up to HOB and left in cardiac chair position. M5 PT-IP Objective Assessments Start: 09/25/24 12:28 Freq: NEEDED Status: Active Protocol: Document 09/25/24 12:29 AMB (Rec: 09/25/24 12:46 AMB [id number]) Orientation Orientation/Cognition Level of Alertness Confusional State Comments Pt is talking about situations /people who are not in the room, but when oriented to the fact that she just had surgery and is in the hospital is able to give some details about her life, she knows that her son lives in [place] and that she has grandchildren for example. Gross Range of Motion Upper Extremity ROM Assessment Within Functional Limits Lower Extremity ROM Assessment Left Impaired Impairments Pain limits movement of the L leg, patient limited with ankle pumps on the L where she can perform them on the right Strength Upper Extremity Strength Assessment Within Functional Limits Lower Extremity Strength Assessment Left Impaired M6 PT-IP Treatment Start: 09/25/24 12:28 Freq: NEEDED Status: Active Protocol: Document 09/25/24 12:29 AMB (Rec: 09/25/24 12:46 AMB [id number]) Physical Therapy Treatment Exercises Exercises Ankle Pumps Education Education Provided Weight Bearing Status,Safety M7 PT-IP Assessment and Plan Start: 09/25/24 12:28 Freq: NEEDED Status: Active Protocol: Document 09/26/24 11:54 MB (Rec: 09/26/24 12:23 MB [id number]) PT Summary Assessment and Plan Potential Rehabilitation Potential Poor Status of Condition at Evaluation Evolving Summary Impairments Pain,ROM,Strength,Balance, Coordination,Cognition,Bed Mobility,Transfers,Gait, Activity Tolerance Progress Towards Goals Slow Progress due to Pain,Slow Progress - Other Assessment Summary Pt con't with severe confusion and refusal to participate getting to EOB with PT and assisting with moving to HOB and she requires +2 dependent assistance to scoot up to HOB. Acute confusion in setting of baseline dementia are barriers to skilled PT. Will attempt PT one more time and if she con't to refuse to participate, will d/c acute skilled PT. Recommend OOB to chair with total lift and nsg. Goals Bed Mobility Goal Minimal Assistance Transfer Goal Moderate Assistance,Front Wheeled Walker Gait Goal Maximal Assistance,Front Wheel Walker Gait Distance 5 Days to Meet Goals 5 Frequency of Treatment Frequency Of Treatment Once a Day Other frequency Consider d/c if no participation next attempt Treatment Plan Physical Therapy Treatment Plan Bed Mobility Training,Transfer Training,Gait Training, Therapeutic Exercise,Balance Retraining,Post Op Education, Discharge Planning,Hot or Cold Pack,Neuromuscular Re-ed, Coordination Retraining,Manual Therapy Weight Bearing Status Weight Bearing Status Weight Bear as Tolerated Allowed Weight Bearing Amount (enter % LLE or #) (%) Recommendations To Nursing Amount of Assist Needed Mechanical Lift Discharge Recommendations Other Discharge Recommendations 24 hour total care at d/c. Transportation Needs at Discharge Wheelchair/Cabulance,Stretcher /Ambulance
--- NOTE | 2024-09-26 13:20 | CM.DPNOTE ---
DCP Cont Reviewed chart. Patient discussed in multidisciplinary rounds. Patient had a good night, not impulsive. Remains confused although easily redirectable. Patient is medically ready for discharge to SNF today. Multiple attempts to reach Xiao, admissions at [facility], have failed. Acceptance vs decline pending. CM team following closely for coordination. Plan: Discharge to [facility] Friday via wheelchair van if [facility] accepts for admission. LIS
[2024-09-26 20:25] VITALS: BP 151/84; PULSE 94; RESP 16; TEMP 36.8; O2SAT 93
[2024-09-26] MEDS: cefTRIAXone 1,000 MG in SODIUM CHLORIDE 0.9% 100 ML 200 MG IV (20:51)
[2024-09-26] MEDS: ACETAMINOPHEN 325 MG TABLET 650 MG PO (20:52)
--- NOTE | 2024-09-27 00:13 | PC.NURSE ---
NOC: Pt A&Ox1, pleasantly confused, holding loud conversation with self re: varied topics, but not impulsive or agitated. During med pass, pt stated Hopefully I won't have to throw things at you. This RN asked pt why that would happen. Pt stated Well people were coming in here with their hide and seek games and I almost had to throw something at them. Pt has not thrown any items thus far into shift (1214). Care continues.
[2024-09-27] MEDS: OXYCODONE IR 5 MG TABLET PO ×3 (02:22→08:30)
[2024-09-27] MEDS: ACETAMINOPHEN 325 MG TABLET 650 MG PO (05:25)
[2024-09-27] MEDS: SODIUM CHLORIDE 0.9% 1,000 ML 75 ML IV (05:30)
--- NOTE | 2024-09-27 08:15 | PM.PNPO.1 ---
Subjective Subjective Date Patient Seen: 09/27/24 Time Patient Seen: 08:15 Interval history: Pt sleeping soundly, arouses to light touch. Somewhat confused, 'I can't do shit with my body.' Responds to some commands. In review of CM notes, it appears she may discharge to [facility] today. Exam Vital Signs (past 8 hours): Fraction of Inspired Oxygen 32 SaO2/FiO2 Ratio 290 Oxygen Delivery Method Nasal Cannula Oxygen Flow Rate 0 Narrative Exam Narrative: Minimally cooperative, but did observe intact PF, DF, EHL. Calf soft and compressible. Aquacel dressing CDI. Objective Labs 09/26/24 11:00 09/26/24 11:00 Labs: Laboratory Results - last 24 hr 09/26/24 11:00 WBC 10.8 RBC 3.80 L Hgb 11.2 L Hct 33.8 L MCV 88.9 MCH 29.6 MCHC 33.3 RDW 14.5 Plt Count 363 Sodium 137 Potassium 4.1 Chloride 106 Carbon Dioxide 24 BUN 21 H Creatinine 1.19 H Estimated GFR 46 L BUN/Creatinine Ratio 17.6 Glucose 100 Calcium 9.4 PFSH Medical History Transaminitis PFO (patent foramen ovale) Abnormality of mitral valve annulus White matter disease History of stroke Essential hypertension (06/25/16) Surgical History Status post breast lumpectomy History of cataract removal with insertion of prosthetic lens Status post tubal ligation History of tonsillectomy Status post appendectomy Family History Mother Age: 98 Heart disease Social History household members: other Smoking Status: Former smoker Tobacco: How many years used: 12 second hand exposure: No alcohol intake: current substance use type: marijuana (I smoke it once a week.) Assessment & Plan Post-op Assessment and plan (1) Status post hip surgery: Assessment and Plan narrative: 1) Weightbearing as tolerated to LLE. 2) Currently receiving lovenox 40mg SQ daily. This can continue x 4 weeks, or she can be changed to ASA 81mg BID x 6 weeks. It lookes like she was on ASA 81mg daily prior to admission. 3) Disposition, pain management, and VTE prophylaxis per hospitalist service. 4) F/u w/ ortho in 2 weeks for wound check and xrays. Postoperative Procedures: Procedures Operation Date: 09/24/24 17:00 Actual Procedure Side Surgeon p hip ORIF Nail Left Opal Aparicio MD Postoperative day: 3 Quality VTE Deep Vein Thrombosis/Pulmonary Embolism Present on Admission: No
[2024-09-27] MEDS: ASPIRIN EC 81 MG TABLET PO (08:29)
[2024-09-27] MEDS: DOCUSATE 100 MG CAPSULE PO (08:29)
[2024-09-27] MEDS: ENOXAPARIN 40 MG/0.4 ML SYRINGE SUBCUT (08:30)
[2024-09-27] MEDS: polyethylene glycoL 3350 17 GM POWD.PACK PO (08:30)
[2024-09-27 08:34] VITALS: BP 149/90; PULSE 95
[2024-09-27] MEDS: METOPROLOL ER 50 MG TABLET 100 MG PO (08:34)
[2024-09-27] MEDS: AMLODIPINE 5 MG TABLET 10 MG PO (08:34)
[2024-09-27 08:35] VITALS: BP 149/90; PULSE 90; RESP 18; TEMP 36.4; O2SAT 97
[2024-09-27] MEDS: SODIUM CHLORIDE 0.9% FLUSH 10 ML IV (09:00)
--- NOTE | 2024-09-27 12:17 | CM.DPC ---
DCP Discharge SNF Per MD, pt remains medically stable to d/c to SNF today and no identified barriers to discharge and orders placed. BEA called Xiao at [facility] and sent updated clinicals to review and she confirmed with their administator that they can accept patient for rehab and they already spoke with [facility] and they will take pt back after SNF rehab. Pt has been calm and cooperative and not impulsive and [facility] can provide transport with their w/c van today at 1400. BEA called pt's son Uzair [phone] as pt with dementia at baseline and updated him on above and he confirms he is agreeable with d/c plan for today and will keep in touch with SNF regarding his mom's recovery. REBEL Palomares kindly faxing d/c packet to [facility] with signed med list, scripts, PASRR, d/c summary and orders to review. BEA updated container repairer, TUBING MACHINE TENDER, and RN and provided number to call report. Plan: Patient to d/c to [facility] today via facility van at 1400 before safe return back to [facility] after her fall and fx. Nat Holguin, SUPERVISOR PARTICLEBOARD
--- NOTE | 2024-09-27 13:37 | PM.DS.1 ---
History of Present Illness History of Present Illness Date Patient Seen: 09/27/24 Time Patient Seen: 13:37 Date of Onset of Symptoms: 09/22/24 Chief complaint: GLF / LEFT hip pain Narrative: Per admitting provider, This is a 79-year-old female who lives in dementia Care who fell and noted the acute onset of left hip pain. She was living in a retirement situation about a year ago. I talked to her son he said that she had had some progressive decline and a history of a stroke. He notes she does seem to have a visual field defect and he thinks she is weak on the right side. He and the grandkids visit her. Discharge Providers Provider Date of admission: 09/22/24 20:41 Discharge Date: 09/27/24 Primary care physician: Yoshi Reeder MD Consults: 09/22/24 20:44 Consult to Orthopedic Surgery Routine Comment: Consulting Provider: Altagracia Banks Reason for consultation: Left hip fracture Has provider been notified: Yes 09/24/24 22:43 Consult to Discharge Planning Routine Comment: Consult to Occupational Therapy Evaluate & Treat Comment: Physician Instructions: Evaluate and treat Consult to Physical Therapy Evaluate & Treat Comment: Weightbear as tolerated Physician Instructions: Evaluate and Treat Discharge provider: Leonardo Castillo DO Summary Hospital Course Discharge Diagnosis: 1. Right intertrochanteric hip fracture, secondary to ground level fall. Pathologic secondary to osteoporosis. Present on admission and active. 2. Pathologic fracture secondary to osteoporosis, present on admission and active. 3. Chronic Atrial fibrillation, present on admission and stable. On chronic aspirin. 4. Hypertension, present on admission and stable. 5. Dementia, present on admission and stable. 6. Possible acute cystitis Hospital Course: This is an 79-year-old female with a past medical history of dementia, hypertension, and atrial fibrillation who was admitted with a right intertrochanteric femur fracture. She underwent operative repair with Orthopedic surgery, and had uncomplicated postoperative course. Initially evaluation was notable for a possible acute cystitis, though her urine cultures were negative. She completed a course of 3 days of ceftriaxone while here in the hospital. After therapy evaluation she was recommended for continued PT and OT at a group home facility where she was transferred on discharge. Time Spent with Patient Time spent: Greater than 30 minutes Exam Vital Signs (past 8 hours): - 09/27/24 08:34 09/27/24 08:35 Temperature 97.6 F Pulse Rate 95 H 90 Respiratory Rate 18 Blood Pressure 149/90 H 149/90 H Pulse Oximetry 97 Fraction of Inspired Oxygen 32 SaO2/FiO2 Ratio 290 Oxygen Delivery Method Nasal Cannula Oxygen Flow Rate 0 Narrative Exam Narrative: NAD, alert, no acute distress Fluent speech. Lungs are clear, normal rate and effort. Heart is regular, no murmur gallop or rub. Abdomen is soft, non distended. Extremities are free of edema. Objective Labs 09/26/24 11:00 09/26/24 11:00 [facility] Medical History Transaminitis PFO (patent foramen ovale) Abnormality of mitral valve annulus White matter disease History of stroke Essential hypertension (06/25/16) Surgical History Status post breast lumpectomy History of cataract removal with insertion of prosthetic lens Status post tubal ligation History of tonsillectomy Status post appendectomy Family History Mother Age: 98 Heart disease Social History household members: other Smoking Status: Former smoker Tobacco: How many years used: 12 second hand exposure: No alcohol intake: current substance use type: marijuana (I smoke it once a week.) Discharge Plan Discharge Plan Patient Disposition: SNF Transfer to: [facility] Provider Discharge Comment: 79 F admitted with L hip fracture, transfer to SNF for ongoing PT/OT. Possible UTI but negative urine culture, completed antibiotic course while in the hospital. Discharge orders & Medications Prescriptions: New acetaminophen 325 mg Tablet 650 mg PO Q6H PRN (Reason: Fever/Mild Pain (1-3)) Qty: 30 0RF aspirin 81 mg Tablet,Delayed Release (Dr/Ec) 81 mg PO BID Qty: 60 0RF docusate sodium 100 mg Capsule 100 mg PO BID Qty: 60 0RF sennosides [senna] 8.6 mg Tablet 17.2 mg PO BEDTIME Qty: 14 0RF polyethylene glycol 3350 17 gram Powder In Packet 17 gm PO DAILY Qty: 14 0RF ondansetron 4 mg Tablet,Disintegrating 4 mg PO Q4HR PRN (Reason: Nausea And Vomiting) Qty: 30 0RF oxycodone 5 mg Tablet 5 mg PO Q4H PRN (Reason: Pain, Moderate (4-6)) Qty: 20 0RF Continued metoprolol succinate 100 mg tablet extended release 24 hr 100 mg PO DAILY Qty: 90 0RF Rx Instructions: 1 TAB EVERY MORNING AND AT BEDTIME FOR HTN HOLD FOR SBP GREATER 110 OR HR GREATER 80 aspirin [Fam Low Dose Aspirin] 81 mg tablet,delayed release (DR/EC) 81 mg PO DAILY cholecalciferol (vitamin D3) 25 mcg (1,000 unit) capsule 25 mcg PO DAILY sennosides [senna] 8.6 mg Tablet 8.6 mg PO BEDTIME PRN (Reason: Constipation) Rx Instructions: TWO TABS HS FOR CONSTIPATION HOLD IF LOOSE STOOL amlodipine 10 mg Tablet 10 mg PO DAILY Biofreeze (menthol) 10 % Cream 1 applic TOPICAL BID PRN (Reason: R SHOULDER PAIN) Follow up/Referrals: Opal Aparicio MD [Physician] - 2 Weeks (Follow up w/ PA or Dr Aparicio in ortho clinic for staple removal and xrays.) Yoshi Reeder MD [Primary Care Provider] - Danielito Leija MD [Physician] - Discharge Health Status Precautions: Graham Diet/Activity/Treatments Diet: Diet as Tolerated and Regular Liquid consistency: Normal/Thin Food texture: Regular Activity: Weightbearing as tolerated. Skin/Wound/Dressing Care Report to your healthcare provider any signs of infection, such as:: chills, fever, night sweats, unusual drainage and unusual redness Dressing: May shower. Leave Aquacel dressing in place until follow up in office. If dressing becomes saturated inside, may remove and replace with clean, dry gauze. No soaking incisions or applying any creams, lotions, or ointments to incisions. Special Rehabilitation Services Reason for rehabilitation: Post-operative therapy Rehab type: Physical therapy and Occupational therapy Visit Report/Discharge Packet Stand Alone Forms: Patient Portal/API, Patient Portal/API/Survey Discharge Data Primary Care Provider: Yoshi Reeder Quality VTE Deep Vein Thrombosis/Pulmonary Embolism Present on Admission: No
--- NOTE | 2024-09-27 14:50 | PC.NURSE ---
D/c packet completed. IV removed. This RN called Nettie Shabazz and gave report to IDA Navarro. All questions answered. Pt belongings handed to [facility] personnel. Pt safely transferred from bed to w/c, and exited with [facility] personnel to facility vehicle.
== END 2024-09-27 14:45 | DRG 481 ==
LOC: ED 20:37 → AC 20:41
PROVIDERS: Orthopaedic Surgery Foot and Ankle Surgery; Admitting Provider Family Medicine; Emergency Provider Emergency Medicine; PCP Hospitalist; Referring Provider Emergency Medicine; Visit Provider Hospitalist
PROC: 0QS706Z Reposition Left Upper Femur with Intramedullary Internal Fixation Device, Open Approach (ICD-10-PCS; CPT 27245; principal; 2024-09-24 17:00)
DX: M80.052A Age-related osteoporosis with current pathological fracture, left femur, initial encounter for fracture (principal); I48.20 Chronic atrial fibrillation, unspecified; N30.00 Acute cystitis without hematuria; I10 Essential (primary) hypertension; F03.90 Unspecified dementia, unspecified severity, without behavioral disturbance, psychotic disturbance, mood disturbance, and anxiety; R90.82 White matter disease, unspecified; Z66 Do not resuscitate; Z87.891 Personal history of nicotine dependence; Z79.82 Long term (current) use of aspirin; Z86.73 Personal history of transient ischemic attack (TIA), and cerebral infarction without residual deficits
CPT/HCPCS: 36415; 70450; 72125; 73502; 76000; 80048; 80053; 81001; 85025; 85027; 86850; 86900; 86901; 87040; 87086; 93005; 94762; 96374; 96376; 97162; 97530; 99285; J0134; J0171; J0690; J0696; J1100; J1171; J1650; J2270; J2405; J2704; J3010